=== PATIENT | female | born 1990 | race Caucasian/White ===

== ENCOUNTER 2017-02-19 04:57 | Emergency (ER) | payer OTHER ==
[~2017-02-19] VITALS: Ht 167.6 cm; Wt 86.2 kg
[2017-02-19 05:02] VITALS: BP 143/90
[2017-02-19] MEDS ORDERED: CLIN300C86 PO (05:33)
[2017-02-19] MEDS ORDERED: ACET-704 PO (05:33)
--- NOTE | 2017-02-19 05:33 | PHYS DOC ---
Past Medical History Past Medical History: No Pertinent History Past Surgical History: No Surgical History Alcohol Use: None Drug Use: None Adult General Chief Complaint Chief Complaint: SKIN RASH/ABSCESS HPI HPI Patient is a 26 year old female who presents with redness to left breast. Patient reports she initially had her nipples pierced in May. She had complications with the left nipple piercing. In November she developed a bump and drainage around that nipple, that resolved on its own. Today she started having some redness and heat and area of the left breast. No fever. No other acute complaints. No drainage from nipple or other site of breast. Review of Systems Review of Systems Constitutional: Denies fever or chills Respiratory: Denies cough or shortness of breath Cardiovascular: Denies chest pain Breast: L breast redness and heat GI: Denies abdominal pain, nausea, vomiting, or diarrhea Musculoskeletal: Denies back pain or joint pain Neurologic: Denies headache, focal weakness or sensory changes Current Medications Current Medications Current Medications Medications (Trade) Dose Ordered Sig/Brandan Start Time Stop Time Status Last Admin Dose Admin Clindamycin HCl (Cleocin) 300 mg 1X ONCE 02/19/17 06:00 02/19/17 06:00 DC 02/19/17 05:38 300 MG Naproxen (Naprosyn) 500 mg 1X ONCE 02/19/17 06:00 02/19/17 06:00 DC 02/19/17 05:39 500 MG Allergies Allergies Allergies Coded Allergies Type Severity Reaction Last Updated Verified No Known Drug Allergies 07/18/15 No Physical Exam Physical Exam Constitutional: Well developed, well nourished, no acute distress, non-toxic appearance Cardiovascular: Heart rate normal, regular rhythm, no murmur Lungs & Thorax: Bilateral breath sounds clear to auscultation Breast: L breast with area of redness, induration, warmth to touch at 10 o' clock position with respect to nipple; no fluctuance noted; no drainage noted Abdomen: Bowel sounds normal, soft, non-distended, no TTP Skin: Warm, dry, no erythema, no rash Extremities: No obvious deformity, no edema Neurologic: Alert and oriented X 3, no gross deficits noted Current Patient Data Vital Signs Vital Signs Date Time Temp Pulse Resp B/P Pulse Ox O2 Delivery O2 Flow Rate FiO2 02/19/17 05:02 98.6 98 16 100 Room Air 98.6 EKG EKG [] Radiology/Procedures Radiology/Procedures [] Course & Med Decision Making Course & Med Decision Making Pertinent Labs and Imaging studies reviewed. (See chart for details) Patient is 26-year-old female who presents with cellulitis of left breast. Physical exam does not reveal evidence of abscess. Dose of naproxen and clindamycin ordered. We'll discharge home with short course pain medication, course of clindamycin, instructions for close outpatient follow-up, return precautions. Dragon Disclaimer Dragon Disclaimer This electronic medical record was generated, in whole or in part, using a voice recognition dictation system. Departure Departure Impression: Primary Impression: Cellulitis of left breast Disposition: HOME, SELF-CARE Condition: STABLE Referrals: NO PCP (PCP) Patient Instructions: Cellulitis Additional Instructions: Thank you for allowing us to provide care today in the Emergency Department. Take the provided medication as directed. Use caution when taking the pain medication as it can make you drowsy. Be sure to take the full course of antibiotics. Schedule a follow up appointment with Plastic Surgery at . Call [phone] to schedule an appointment. Return promptly to the Emergency Department if you develop any new or concerning symptoms, such as fever. Scripts Clindamycin Hcl 300 Mg Capsule1 Cap PO TID #21 CAP Prov:LAN BELTRAN MD 02/19/17 Acetaminophen With Codeine (Tylenol With Codeine #3 Tablet)1 Each Tablet1 Tab PO PRN Q4HRS PRN PAIN #20 TAB Prov:LAN BELTRAN MD 02/19/17 LAN BELTRAN MD Feb 19, 2017 05:33
[2017-02-19] MEDS ORDERED: CLINDAMYCIN HCL 150 MG CAPSULE. PO ONE (06:00)
[2017-02-19] MEDS ORDERED: NAPROXEN 500 MG TABLET PO ONE (06:00)
== END 2017-02-19 05:40 | disposition home or self-care (01) ==
LOC: ER 04:57
DX: N61.0 Mastitis without abscess (principal)
CPT/HCPCS: 99283

== ENCOUNTER 2017-03-05 05:25 | Inpatient (IN) | payer SELFPAY ==
[2017-03-05] VITALS (10 sets, daily range): BP systolic 110–135; BP diastolic 64–80
[~2017-03-05] VITALS: Ht 167.6 cm; Wt 86.2 kg
[~2017-03-05 05:25] MED LIST: ACET-704 PO; CLIN300C86 PO
--- NOTE | 2017-03-05 05:45 | PHYS DOC ---
Past Medical History Past Medical History: No Pertinent History Past Surgical History: No Surgical History Alcohol Use: None Drug Use: None Adult General Chief Complaint Chief Complaint: BREAST PROBLEM HPI HPI Patient is a 26 year old female presenting to the emergency department for valuation of left breast pain and swelling. She was seen on February 19 for similar incident home on clindamycin and she said it did not get better until towards the end of the course but never completely resolved. She says over the past several days it has become much more red and hard and painful. No systemic fevers chills nausea vomiting or other systemic symptoms. Review of Systems Review of Systems Constitutional: Denies fever or chills [] Eyes: Denies change in visual acuity, redness, or eye pain [] HENT: Denies nasal congestion or sore throat [] Respiratory: Denies cough or shortness of breath [] Cardiovascular: No additional information not addressed in HPI [] GI: Denies abdominal pain, nausea, vomiting, bloody stools or diarrhea [] : Denies dysuria or hematuria [] Musculoskeletal: Denies back pain or joint pain [] Integument: Left breast cellulitis at 10 o'clock position and spreads towards her sternum. There is fairly impressive induration under the skin. Neurologic: Denies headache, focal weakness or sensory changes [] Current Medications Current Medications Current Medications Medications (Trade) Dose Ordered Sig/Brandan Start Time Stop Time Status Last Admin Dose Admin Ceftriaxone Sodium 1 gm/ Sodium Chloride 50 ml @ 100 mls/hr Q24H 03/06/17 06:00 Ceftriaxone Sodium (Rocephin 1gm Ivpb For Omni) 50 ml @ 100 mls/hr 1X ONCE 03/05/17 06:00 03/05/17 06:29 Morphine Sulfate 5 mg 5 mg 1X ONCE 03/05/17 06:00 03/05/17 06:01 DC Allergies Allergies Allergies Coded Allergies Type Severity Reaction Last Updated Verified No Known Drug Allergies 07/18/15 No Physical Exam Physical Exam Constitutional: Well developed, well nourished, no acute distress, non-toxic appearance. [] HENT: Normocephalic, atraumatic, bilateral external ears normal, oropharynx moist, no oral exudates, nose normal. [] Eyes: PERRLA, EOMI, conjunctiva normal, no discharge. [] Neck: Normal range of motion, no tenderness, supple, no stridor. [] Cardiovascular:Heart rate regular rhythm, no murmur [] Lungs & Thorax: Bilateral breath sounds clear to auscultation [] Abdomen: Bowel sounds normal, soft, no tenderness, no masses, no pulsatile masses. [] Skin: Warm, dry, no erythema, no rash. [] Back: No tenderness, no CVA tenderness. [] Extremities: No tenderness, no cyanosis, no clubbing, ROM intact, no edema. [] Neurologic: Alert and oriented X 3, normal motor function, normal sensory function, no focal deficits noted. [] Psychologic: Affect normal, judgement normal, mood normal. [] Current Patient Data Vital Signs Vital Signs Date Time Temp Pulse Resp B/P Pulse Ox O2 Delivery O2 Flow Rate FiO2 03/05/17 05:40 99.0 95 16 179/81 96 Room Air 99.0 EKG EKG [] Radiology/Procedures Radiology/Procedures [] Course & Med Decision Making Course & Med Decision Making Patient will get labs, breast ultrasound and then be reassessed. Will transfer care to Dr. Dorman while awaiting workup. Dragon Disclaimer Dragon Disclaimer This electronic medical record was generated, in whole or in part, using a voice recognition dictation system. Departure Departure Impression: Primary Impression: Cellulitis of left breast Referrals: NO PCP (PCP) LILLIE CHAVES DO March 05, 2017 05:45
[2017-03-05] MEDS ORDERED: MORPHINE SULFATE 10 MG/ML VIAL. IV ONE (06:00)
[2017-03-05 06:28] LABS: BASO # 0.1 x10^3/uL (0.0-0.2); BASO % 1 % (0-3); EOS % 4 % (0-3); HEMATOCRIT 41.9 % (36.0-47.0); HEMOGLOBIN 14.7 g/dL (12.0-15.5); LYMPH # 2.6 x10^3/uL (1.0-4.8); LYMPH % 25 % (24-48); MEAN CORPUSCULAR HEMOGLOBIN 33 pg (25-35); MEAN CORPUSCULAR HGB CONC 35 g/dL (31-37); MEAN CORPUSCULAR VOLUME 94 fL (79-100); MONO % 9 % (0-9); NEUT % 61 % (31-73); PLATELET COUNT 235 x10^3/uL (140-400); RED BLOOD COUNT 4.46 x10^6/uL (3.50-5.40); RED CELL DISTRIBUTION WIDTH 13.4 % (11.5-14.5); WHITE BLOOD COUNT 10.5 x10^3/uL (4.0-11.0)
[2017-03-05 06:35] LABS: CALCIUM 9.2 mg/dL (8.5-10.1); CREATININE 0.8 mg/dL (0.6-1.0); GFR 88.1; POTASSIUM 3.7 mmol/L (3.5-5.1)
[2017-03-05 06:40] LABS: ALBUMIN 3.9 g/dL (3.4-5.0); TOTAL BILIRUBIN 0.3 mg/dL (0.2-1.0); TOTAL PROTEIN 7.8 g/dL (6.4-8.2)
--- NOTE | 2017-03-05 06:44 | RAD ---
PROCEDURE Left breast diagnostic ultrasound HISTORY Previous lump around nipple that expressed Gallardo. Patient recently given antibiotics for red swollen and hard nipple. Patient returns today for red hard abnormality behind the nipple. TECHNIQUE Sonographic examination of the left breast was performed and multiple static images were obtained FINDINGS There is a complex fluid collection directly behind the nipple areolar complex that measures 3.1 x 3.1 x 3.9 centimeters. IMPRESSION Complex fluid collection directly behind the nipple areolar complex corresponding with the palpable abnormality. This is likely an abscess. This may be amenable to aspiration. ACR BI-RADS 3: Probably benign. Electronically signed by: John Kaye MD (March 05, 2017 06:43:27)
--- NOTE | 2017-03-05 07:47 | ACF ---
Admission Forms Criteria CELLULITIS Clinical Indications for Admission to Inpatient Care (Place 'X' for any and all applicable criteria): Admission is indicated for ANY ONE of the following(1)(2)(3)(4)(5): [ ]I. Limb-threatening infection [ ]II. High-risk comorbid condition as indicated by ANY ONE of the following: [ ]a) Uncontrolled diabetes (eg, HbA1c greater than 10% (0.1)) [ ]b) Cirrhosis [ ]c) Neutropenia [ ]d) Asplenia [ ]e) Immunosuppression [ ]f) Symptomatic heart failure [ ]III. Failure of outpatient therapy as indicated by ALL of the following: [ ]a) Progression or no improvement after adequate trial (minimum of 48 hours, with longer period for stable lower extremity infection) [ ]b) Adequate antibiotic regimen as indicated by use of ANY ONE of the following: [ ]i) First-generation cephalosporin (e.g., cephalexin) [ ]ii) Antistaphylococcal penicillin (e.g., dicloxacillin) [ ]iii) Penicillin-allergic patient regimen (clindamycin, extended-spectrum fluoroquinolone, or doxycycline) [ ]iv) Resistant organism (eg, methicillin-resistant Staphylococcus aureus) regimen (6) [ ]c) Outpatient intravenous therapy regimen is not appropriate due to ANY ONE of the following. (7)(8)(9)(10): [ ]i) It was tried and was not successful (eg, progression of infection). [ ]ii) It is not available or cannot be arranged in a clinically appropriate time frame (e.g., the next day). [ ]iii) Clinical presentation (eg, acuity of infection, rapidity of progression, confirmed or suspected bacteremia) is judged to require ALL of the following: [ ]1) Immediate initiation of intravenous therapy ( eg, cannot wait for next day) [ ]2) Intensity of patient monitoring and observation (eg, vital sign measurement, checks for infection progression) that cannot be provided at other than inpatient level of care [ ]IV. Mental status changes [ ]V. Bacteremia [ ]. Hemodynamic instability [ ]VII. Suspected necrotizing soft tissue infection (e.g., gas in tissue)(11)( 12) [ ]VIII. Orbital infection (13)(14) [ ]IX. Associated surgical procedure (e.g., abscess drainage, debridement) not amenable to outpatient, emergency department, or observation care [ ]X. Cutaneous gangrene [ ]XI. High fever (temperature greater than 39.5 degrees C (103.1 degrees F) (oral)) not responsive to outpatient, emergency department, or observation care therapy [X]XIII. Inpatient admission required rather than observation care (Also use Cellulitis: Observation Care as appropriate) because of ANY ONE of the following : [ ]a) Periorbital or perineal infection that is severe or worsening [ ]b) Severe pain requiring acute inpatient management [ ]c) IV fluid to replace significant ongoing (e.g., for over 24 hours) losses (greater than 3L/m2 per day) [ ]d) Compartment syndrome monitoring (17) [ ]e) Strict or protective (eg, laminar flow) isolation [ ]f) Urgent debridement or skin grafting [ ]g) Bone or joint debridement [ ]h) Immediate inpatient surgery [X]i) Other condition, treatment or monitoring requiring inpatient admission Extended stay beyond goal length of stay may be needed for (1)(18): [ ]a) Necrotizing soft tissue infection or fasciitis [ ]b) Gram-negative infection [ ]c) Methicillin-resistant Staphylococcal aureus (MRSA) infection [ ]d) Peripheral venous insufficiency with cellulitis [ ]e) Extensive edema [ ]f) Sepsis or continued Hemodynamic instability [ ]g) Continued high fever or mental status change [ ]h) Bacteremia [ ]i) Active serious comorbid conditions ( eg, heart failure, renal insufficiency) The original [employer] content created by [employer] has been revised. The portions of the content which have been revised are identified through the use of italic text or in bold, and [facility] has neither reviewed nor approved the modified material. All other unmodified content is copyright [employer] Please see references footnoted in the original [employer] edition 2016 Admission Criteria Met?: Yes ALE JAIN March 05, 2017 07:47
[2017-03-05] MEDS ORDERED: IV NORMAL SALINE 1000ML BAG 1,000 ML IV ONE (08:00)
[2017-03-05] MEDS ORDERED: VANCOMYCIN 2 GM in IV NORMAL SALINE 500ML BAG 500 ML IV ONE (08:00)
[2017-03-05] MEDS: MORPHINE SULFATE 2 MG/ML DISP.SYRIN. IV PRN ×7 (08:46→16:05)
--- NOTE | 2017-03-05 11:43 | PDOC2 ---
CONSULT Date of Consult Date of Consult DATE: 03/05/17 TIME: 11:39 History of Present Illness Reason for Visit: The patient is a 26 year old female who reported to the ER with left breast pain and swelling. She states she has had intermittent problems with this starting back in November. Back then there was some spontaneous drainage with improvement. The problems worsened again in February and she was place on antibiotics 2 weeks ago from the ER with little improvement. She denies fever or chills. Past Medical History Past Medical History denies Past Surgical History Past Surgical History denies Social History 1 pack per day ALCOHOL: rare Lives: Alone Current Problem List Problem List Problems Medical Problems: (1) Cellulitis of left breast Status: Acute Current Medications Current Medications Current Medications Morphine Sulfate 5 mg 5 mg 1X ONCE IV Last administered on 03/05/17 06:21; Start 03/05/17 at 06:00; Stop 03/05/17 at 06:01; Status DC Ceftriaxone Sodium 1 gm/ Sodium Chloride 50 ml @ 100 mls/hr Q24H IV ; Start 03/06/17 at 06:00 Ceftriaxone Sodium 50 ml @ 100 mls/hr 1X ONCE IV Last administered on 06:20; Start 03/05/17 at 06:00; Stop 03/05/17 at 06:29; Status DC Vancomycin HCl/ Sodium Chloride (Iv Sodium Chloride 0.9% 500ml Bag) 500 ml @ 250 mls/hr 1X ONCE IV Last administered on 03/05/17 08:14; Start 03/05/17 at 08 :00; Stop 03/05/17 at 09:59; Status DC Morphine Sulfate 2 mg 2 mg PRN Q2HR PRN IV PAIN Last administered on 03/05/17 10:56; Start 03/05/17 at 08:00; Stop 03/06/17 at 07:59 Sodium Chloride (Iv Sodium Chloride 0.9% 1000ml Bag) 1,000 ml @ 125 mls/hr 1X ONCE IV Last administered on 03/05/17 08:18; Start 03/05/17 at 08:00; Stop at 15:59 Active Scripts Active Clindamycin Hcl 300 Mg Capsule 1 Cap PO TID Tylenol With Codeine #3 Tablet (Acetaminophen/Codeine Phosphate) 1 Each Tablet 1 Tab PO PRN Q4HRS PRN Reported No Known Medications Prior To Admisstion (Info) Each 1 Each Allergies Allergies: Coded Allergies: No Known Drug Allergies (Unverified , 07/18/15) ROS General: No: Appetite, Chills, Fatigue, Malaise, Night Sweats, Other PSYCHOLOGICAL ROS: No: Anxiety, Behavioral Disorder, Concentration difficultie , Decreased libido, Depression, Disorientation, Hallucinations, Hostility, Irritablity, Memory difficulties, Mood Swings, Obsessive thoughts, Other, Physical abuse, Sexual abuse, Sleep disturbances, Suicidal ideation Eyes: No Blurry vision, No Decreased vision, No Double vision, No Dry eyes, No Excessive tearing, No Eye Pain, No Itchy Eyes, No Loss of vision, No Other, No Photophobia, No Scotomata, No Uses contacts, No Uses glasses HEENT: No: Epistaxis, Heacaches, Hearing change, Nasal congestion, Nasal discharge, Oral lesions, Other, Sinus pain, Sneezing, Snoring, Sore Throat, Tinnitus, Vertigo, Visual Changes, Vocal changes Breast: Other (left breast pain, swelling) Respiratory: No: Cough, Hemoptysis, Orthopnea, Other, Pleuritic Pain, SOB with excertion, Shortness of breath, Sputum Changes, Stridor, Tachypnea, Wheezing Cardiovascular: No Chest Pain, No Edema, No Lt Headedness, No Orthopnea, No Other, No Palpitations, No Paroxysmal Noc. Dyspnea Gastrointestinal: No Abdominal Pain, No Constipation, No Diarrhea, No Hematochezia, No Melena, No Nausea, No Other, No Vomiting Genitourinary: No , No , No , No , No , No , No , No Discharge, No Dysuria, No Flank Pain, No Frequency, No Hematuria, No Incontinence, No Other, No Pain, No Retention, No Urgency Musculoskeletal: No Gait Disturbance, No Joint Pain, No Joint Stiffness, No Joint Swelling, No Muscle Pain, No Muscular Weakness, No Other, No Pain In:, No Swelling In: Neurological: No Behavorial Changes, No Bowel/Bladder ControlChng, No Confusion , No Dizziness, No Gait Disturbance, No Headaches, No Impaired Coord/balance, No Memory Loss, No Numbness/Tingling, No Other, No Seizures, No Speech Problems , No Tremors, No Visual Changes, No Weakness Skin: No Acne, No Dry Skin, No Eczema, No Hair Changes, No Lumps, No Mole Changes, No Mottling, No Nail Changes, No Other, No Pruritus, No Rash, No Skin Lesion Changes Physical Exam Physical Exam left breast with large central areal of pain, induration, erythema General: Alert, Oriented X3, Cooperative, No acute distress HEENT: Atraumatic Lungs: Clear to auscultation Heart: Regular rate, No murmurs Abdomen: Soft, No tenderness Extremities: No clubbing, No cyanosis, No edema Skin: No rashes, No breakdown Neuro: Normal speech Psych/Mental Status: Mental status NL MUSCULOSKELETAL: No joint tenderness Vitals VITALS Vital Signs Date Time Temp Pulse Resp B/P Pulse Ox O2 Delivery O2 Flow Rate FiO2 03/05/17 11:28 Room Air 03/05/17 10:15 98.2 74 16 135/80 97 98.2 Labs Labs Laboratory Tests Test 03/05/17 06:15 White Blood Count 10.5x10^3/uL (4.0-11.0) Red Blood Count 4.46x10^6/uL (3.50-5.40) Hemoglobin 14.7g/dL (12.0-15.5) Hematocrit 41.9% (36.0-47.0) Mean Corpuscular Volume 94fL (79-100) Mean Corpuscular Hemoglobin 33pg (25-35) Mean Corpuscular Hemoglobin Concent 35g/dL (31-37) Red Cell Distribution Width 13.4% (11.5-14.5) Platelet Count 235x10^3/uL (140-400) Neutrophils (%) (Auto) 61% (31-73) Lymphocytes (%) (Auto) 25% (24-48) Monocytes (%) (Auto) 9% (0-9) Eosinophils (%) (Auto) 4% (0-3) Basophils (%) (Auto) 1% (0-3) Neutrophils # (Auto) 6.4x10^3uL (1.8-7.7) Lymphocytes # (Auto) 2.6x10^3/uL (1.0-4.8) Monocytes # (Auto) 1.0x10^3/uL (0.0-1.1) Eosinophils # (Auto) 0.5x10^3/uL (0.0-0.7) Basophils # (Auto) 0.1x10^3/uL (0.0-0.2) Sodium Level 139mmol/L (136-145) Potassium Level 3.7mmol/L (3.5-5.1) Chloride Level 104mmol/L (98-107) Carbon Dioxide Level 29mmol/L (21-32) Anion Gap 6 (6-14) Blood Urea Nitrogen 16mg/dL (7-20) Creatinine 0.8mg/dL (0.6-1.0) Estimated GFR (Cockcroft-Gault) 88.1 BUN/Creatinine Ratio 20 (6-20) Glucose Level 85mg/dL (70-99) Calcium Level 9.2mg/dL (8.5-10.1) Total Bilirubin 0.3mg/dL (0.2-1.0) Aspartate Amino Transf (AST/SGOT) 18U/L (15-37) Alanine Aminotransferase (ALT/SGPT) 29U/L (14-59) Alkaline Phosphatase 112U/L (46-116) Total Protein 7.8g/dL (6.4-8.2) Albumin 3.9g/dL (3.4-5.0) Albumin/Globulin Ratio 1.0 (1.0-1.7) Laboratory Tests Test 03/05/17 06:15 White Blood Count 10.5x10^3/uL (4.0-11.0) Red Blood Count 4.46x10^6/uL (3.50-5.40) Hemoglobin 14.7g/dL (12.0-15.5) Hematocrit 41.9% (36.0-47.0) Mean Corpuscular Volume 94fL (79-100) Mean Corpuscular Hemoglobin 33pg (25-35) Mean Corpuscular Hemoglobin Concent 35g/dL (31-37) Red Cell Distribution Width 13.4% (11.5-14.5) Platelet Count 235x10^3/uL (140-400) Neutrophils (%) (Auto) 61% (31-73) Lymphocytes (%) (Auto) 25% (24-48) Monocytes (%) (Auto) 9% (0-9) Eosinophils (%) (Auto) 4% (0-3) Basophils (%) (Auto) 1% (0-3) Neutrophils # (Auto) 6.4x10^3uL (1.8-7.7) Lymphocytes # (Auto) 2.6x10^3/uL (1.0-4.8) Monocytes # (Auto) 1.0x10^3/uL (0.0-1.1) Eosinophils # (Auto) 0.5x10^3/uL (0.0-0.7) Basophils # (Auto) 0.1x10^3/uL (0.0-0.2) Sodium Level 139mmol/L (136-145) Potassium Level 3.7mmol/L (3.5-5.1) Chloride Level 104mmol/L (98-107) Carbon Dioxide Level 29mmol/L (21-32) Anion Gap 6 (6-14) Blood Urea Nitrogen 16mg/dL (7-20) Creatinine 0.8mg/dL (0.6-1.0) Estimated GFR (Cockcroft-Gault) 88.1 BUN/Creatinine Ratio 20 (6-20) Glucose Level 85mg/dL (70-99) Calcium Level 9.2mg/dL (8.5-10.1) Total Bilirubin 0.3mg/dL (0.2-1.0) Aspartate Amino Transf (AST/SGOT) 18U/L (15-37) Alanine Aminotransferase (ALT/SGPT) 29U/L (14-59) Alkaline Phosphatase 112U/L (46-116) Total Protein 7.8g/dL (6.4-8.2) Albumin 3.9g/dL (3.4-5.0) Albumin/Globulin Ratio 1.0 (1.0-1.7) Assessment/Plan Assessment/Plan L breast abscess, large. Will need I and D in the OR. I explained the procedure to the patient and the risks. She understands and would like to proceed. REUBEN MORRISON MD March 05, 2017 11:43
[2017-03-05] MEDS ORDERED: IV RINGERS,LACTATED 1000ML 1,000 ML IV SCH (12:22)
[2017-03-05] MEDS ORDERED: fentaNYL PF VIAL 100 MCG/2 ML VIAL IV PRN (12:30)
[2017-03-05] MEDS ORDERED: LIDOCAINE 1% 1 ML SYRINGE. ID PRN (12:30)
[2017-03-05] MEDS ORDERED: HYDROmorphone 2 MG/ML VIAL IV PRN (12:30)
[2017-03-05] MEDS ORDERED: PROCHLORPERAZINE 10 MG/2 ML VIAL. IV PRN (12:30)
[2017-03-05] MEDS ORDERED: ONDANSETRON PF 4 MG/2 ML VIAL. IV PRN ×2 (12:30→15:15)
[2017-03-05] MEDS ORDERED: fentaNYL PF VIAL 100 MCG/2 ML VIAL ONE (13:55)
[2017-03-05] MEDS ORDERED: MIDAZOLAM HCL/PF 2 MG/2 ML VIAL. ONE (13:55)
--- NOTE | 2017-03-05 14:22 | PDOC4 ---
Operative Note Operative Note Operative Note: Preoperative Diagnosis: Left breast abscess Postoperative Diagnosis: Same Procedure: Incision and drainage of left breast abscess Surgeon: Jose Anesthesia: Gen. Specimen: Cultures to microbiology Drains: None Complications: None Indication: The patient is a 26-year-old female who reported to the emergency department with a sizable left breast abscess. She will require operative incision and drainage. The details and risks of surgery were discussed with the patient. The risks include bleeding, infection, recurrence, pain, scar tissue, potential need for additional surgery or procedure. She understands and would like to proceed. Description: The patient was taken to the operating room and placed supine on the operating table. Gen. anesthesia was performed. The left breast was prepped with ChloraPrep and draped in a standard surgical manner. An incision was made in a fluctuant area near the border of the areola extending from the 10 to 12 o 'clock position. The abscess cavity was entered with immediate return of a large amount of rankin foul-smelling purulent fluid. Cultures of the fluid retained and sent to microbiology. The entire abscess cavity was fully drained and suctioned. Digital dissection was then performed freeing up any inflammatory loculations or adhesions. The base of the abscess cavity was fairly clean with some inflamed granulation tissue. The entire cavity was irrigated with sterile saline which was suctioned. A small amount of electrocautery was used to assist with hemostasis. The abscess cavity was then packed with sterile gauze and a dressing was then applied. The patient tolerated the procedure well and was sent to the recovery room in stable condition. At the end of the case all counts were correct. REUBEN MORRISON MD March 05, 2017 14:22
[2017-03-05] MEDS ORDERED: SEVOFLURANE 31 TO 60 MINUTES. IH ONE (14:25)
[2017-03-05] MEDS ORDERED: ONDANSETRON PF 4 MG/2 ML VIAL. ONE (14:25)
[2017-03-05] MEDS ORDERED: LIDOCAINE 2% 100 MG/5 ML SYRINGE. ONE (14:25)
[2017-03-05] MEDS ORDERED: DEXAMETHASONE SOD PHOS 20 MG/5 ML VIAL. ONE (14:25)
[2017-03-05] MEDS ORDERED: PROPOFOL 20 ML IV ONE (14:25)
[2017-03-05] MEDS: fentaNYL PF VIAL 100 MCG/2 ML VIAL IV PRN ×2 (14:35→15:03)
[2017-03-05] MEDS ORDERED: ACETAMINOPHEN 325 MG TABLET. PO PRN (15:15)
[2017-03-05] MEDS ORDERED: VANCOMYCIN 2 GM in IV NORMAL SALINE 500ML BAG 500 ML IV SCH (15:15)
[2017-03-05] MEDS ORDERED: MORPHINE SULFATE 2 MG/ML DISP.SYRIN. IV PRN (15:15)
--- NOTE | 2017-03-05 15:18 | PDOC1 ---
History and Physical Date of Admission Date of Admission 03/05/17 Identification/Chief Complaint Chief Complaint left breast pain Problems: Source Source: Chart review, Patient History of Present Illness History of Present Illness 26yo F, comes for left breast pain. Pt started to feel some left breast pain since 11/2016, worse recently and got clinda from ER but not improve. pt is getting I and D in OR now. Past Medical History Past Medical History none Past Surgical History Past Surgical History: No pertinent history Family History Family History: No Significant Social History Smoke: <1 pack per day ALCOHOL: rare Current Problem List Problem List Problems Medical Problems: (1) Cellulitis of left breast Status: Acute Current Medications Current Medications Current Medications Medications (Trade) Dose Ordered Sig/Brandan Start Time Stop Time Status Last Admin Dose Admin Ceftriaxone Sodium 1 gm/ Sodium Chloride 50 ml @ 100 mls/hr Q24H 03/06/17 06:00 Ceftriaxone Sodium 50 ml @ 100 mls/hr 1X ONCE 03/05/17 06:00 03/05/17 06:29 DC 03/05/17 06:20 100 MLS/HR Dexamethasone Sodium Phosphate 20 mg 20 mg STK-MED ONCE 03/05/17 14:25 03/05/17 14:26 DC Fentanyl Citrate (Fentanyl 2ml Vial) 100 mcg STK-MED ONCE 03/05/17 13:55 03/05/17 13:56 DC Hydromorphone HCl (Dilaudid) 0.5 mg PRN Q10MIN PRN 03/05/17 12:30 03/06/17 12:29 Lactated Ringer's (Iv Lactated Ringers) 1,000 ml @ 30 mls/hr Q24H 03/05/17 12:22 03/06/17 00:21 03/05/17 12:22 30 MLS/HR Lidocaine HCl (Lidocaine HCl 2% Abboject) 100 mg STK-MED ONCE 03/05/17 14:25 03/05/17 14:26 DC Midazolam HCl (Versed) 2 mg STK-MED ONCE 03/05/17 13:55 03/05/17 13:56 DC Morphine Sulfate 1 mg 1 mg PRN Q10MIN PRN 03/05/17 12:30 03/06/17 12:29 03/05/17 15:11 1 MG Morphine Sulfate 2 mg 2 mg PRN Q2HR PRN 03/05/17 08:00 03/06/17 07:59 03/05/17 10:56 2 MG Morphine Sulfate 5 mg 5 mg 1X ONCE 03/05/17 06:00 03/05/17 06:01 DC 03/05/17 06:21 5 MG Ondansetron HCl (Zofran) 4 mg STK-MED ONCE 03/05/17 14:25 03/05/17 14:26 DC Prochlorperazine Edisylate (Compazine) 5 mg PACU PRN PRN 03/05/17 12:30 03/06/17 12:29 Propofol (Diprivan) 20 ml @ As Directed STK-MED ONCE 03/05/17 14:25 03/05/17 14:26 DC Sevoflurane (Ultane) 30 ml STK-MED ONCE 03/05/17 14:25 03/05/17 14:26 DC Sodium Chloride (Iv Sodium Chloride 0.9% 1000ml Bag) 1,000 ml @ 125 mls/hr 1X ONCE 03/05/17 08:00 03/05/17 15:59 03/05/17 08:18 125 MLS/HR Vancomycin HCl/ Sodium Chloride (Iv Sodium Chloride 0.9% 500ml Bag) 500 ml @ 250 mls/hr 1X ONCE 03/05/17 08:00 03/05/17 09:59 DC 03/05/17 08:14 250 MLS/HR Allergies Allergies Allergies Coded Allergies Type Severity Reaction Last Updated Verified No Known Drug Allergies 07/18/15 No ROS Review of System CONSTITUTIONAL: No fever or chills EYES: No recent changes SKIN: No rash or itching CARDIOVASCULAR: No chest pain, syncope, palpitations, or edema RESPIRATORY: No SOB or cough GASTROINTESTINAL: No nausea, vomiting or abdominal pain NEUROLOGICAL: No headaches or weakness ENDOCRINE: No cold or heat intolerance GENITOURINARY: No urgency or frequency of urination MUSCULOSKELETAL: No back pain or joint pain LYMPHATICS: No enlarged lymph nodes PSYCHIATRIC: No anxiety or depression Physical Exam Physical Exam GEN.: No apparent distress. Alert and oriented. HEENT: Head is normocephalic, atraumatic NECK: Supple. LUNGS: Clear to auscultation. HEART: RRR, S1, S2 present. Peripheral pulses intact ABDOMEN: Soft, nontender. Positive bowel sounds. EXTREMITIES: Without any cyanosis. NEUROLOGIC: Normal speech, normal tone PSYCHIATRIC: Normal affect, normal mood. SKIN: No ulcerations,. left breast has a nodule erythematous , tenderness Vitals Vitals Vital Signs Date Time Temp Pulse Resp B/P Pulse Ox O2 Delivery O2 Flow Rate FiO2 03/05/17 15:11 16 97 Room Air 03/05/17 14:56 68 141/75 03/05/17 14:35 10.0 03/05/17 14:26 97.5 97.5 Labs Labs Laboratory Tests Test 03/05/17 06:15 White Blood Count 10.5x10^3/uL (4.0-11.0) Red Blood Count 4.46x10^6/uL (3.50-5.40) Hemoglobin 14.7g/dL (12.0-15.5) Hematocrit 41.9% (36.0-47.0) Mean Corpuscular Volume 94fL (79-100) Mean Corpuscular Hemoglobin 33pg (25-35) Mean Corpuscular Hemoglobin Concent 35g/dL (31-37) Red Cell Distribution Width 13.4% (11.5-14.5) Platelet Count 235x10^3/uL (140-400) Neutrophils (%) (Auto) 61% (31-73) Lymphocytes (%) (Auto) 25% (24-48) Monocytes (%) (Auto) 9% (0-9) Eosinophils (%) (Auto) 4% (0-3) Basophils (%) (Auto) 1% (0-3) Neutrophils # (Auto) 6.4x10^3uL (1.8-7.7) Lymphocytes # (Auto) 2.6x10^3/uL (1.0-4.8) Monocytes # (Auto) 1.0x10^3/uL (0.0-1.1) Eosinophils # (Auto) 0.5x10^3/uL (0.0-0.7) Basophils # (Auto) 0.1x10^3/uL (0.0-0.2) Sodium Level 139mmol/L (136-145) Potassium Level 3.7mmol/L (3.5-5.1) Chloride Level 104mmol/L (98-107) Carbon Dioxide Level 29mmol/L (21-32) Anion Gap 6 (6-14) Blood Urea Nitrogen 16mg/dL (7-20) Creatinine 0.8mg/dL (0.6-1.0) Estimated GFR (Cockcroft-Gault) 88.1 BUN/Creatinine Ratio 20 (6-20) Glucose Level 85mg/dL (70-99) Calcium Level 9.2mg/dL (8.5-10.1) Total Bilirubin 0.3mg/dL (0.2-1.0) Aspartate Amino Transf (AST/SGOT) 18U/L (15-37) Alanine Aminotransferase (ALT/SGPT) 29U/L (14-59) Alkaline Phosphatase 112U/L (46-116) Total Protein 7.8g/dL (6.4-8.2) Albumin 3.9g/dL (3.4-5.0) Albumin/Globulin Ratio 1.0 (1.0-1.7) Laboratory Tests Test 03/05/17 06:15 White Blood Count 10.5x10^3/uL (4.0-11.0) Red Blood Count 4.46x10^6/uL (3.50-5.40) Hemoglobin 14.7g/dL (12.0-15.5) Hematocrit 41.9% (36.0-47.0) Mean Corpuscular Volume 94fL (79-100) Mean Corpuscular Hemoglobin 33pg (25-35) Mean Corpuscular Hemoglobin Concent 35g/dL (31-37) Red Cell Distribution Width 13.4% (11.5-14.5) Platelet Count 235x10^3/uL (140-400) Neutrophils (%) (Auto) 61% (31-73) Lymphocytes (%) (Auto) 25% (24-48) Monocytes (%) (Auto) 9% (0-9) Eosinophils (%) (Auto) 4% (0-3) Basophils (%) (Auto) 1% (0-3) Neutrophils # (Auto) 6.4x10^3uL (1.8-7.7) Lymphocytes # (Auto) 2.6x10^3/uL (1.0-4.8) Monocytes # (Auto) 1.0x10^3/uL (0.0-1.1) Eosinophils # (Auto) 0.5x10^3/uL (0.0-0.7) Basophils # (Auto) 0.1x10^3/uL (0.0-0.2) Sodium Level 139mmol/L (136-145) Potassium Level 3.7mmol/L (3.5-5.1) Chloride Level 104mmol/L (98-107) Carbon Dioxide Level 29mmol/L (21-32) Anion Gap 6 (6-14) Blood Urea Nitrogen 16mg/dL (7-20) Creatinine 0.8mg/dL (0.6-1.0) Estimated GFR (Cockcroft-Gault) 88.1 BUN/Creatinine Ratio 20 (6-20) Glucose Level 85mg/dL (70-99) Calcium Level 9.2mg/dL (8.5-10.1) Total Bilirubin 0.3mg/dL (0.2-1.0) Aspartate Amino Transf (AST/SGOT) 18U/L (15-37) Alanine Aminotransferase (ALT/SGPT) 29U/L (14-59) Alkaline Phosphatase 112U/L (46-116) Total Protein 7.8g/dL (6.4-8.2) Albumin 3.9g/dL (3.4-5.0) Albumin/Globulin Ratio 1.0 (1.0-1.7) VTE Prophylaxis Ordered VTE Prophylaxis Devices: Yes VTE Pharmacological Prophylaxi: No Assessment/Plan Assessment/Plan 1. left breast cellulitis/abcess 2. obesity 3. tobaccoism plan: fu with sx, i and d today on ceftriaxone and add vanco pain control need fu with cx ZOEY MADRID MD March 05, 2017 15:17
[2017-03-05] MEDS: VANCOMYCIN PER PHARMACY MC PRN ×2 (15:31→15:41)
[2017-03-05] MEDS: VANCOMYCIN 1.25 GM in IV NORMAL SALINE 250ML 250 ML IV SCH (16:30)
[2017-03-05] MEDS: MORPHINE SULFATE 4 MG/ML DISP.SYRIN. IV PRN ×2 (18:23→22:33)
[2017-03-06] MEDS: VANCOMYCIN 1.25 GM in IV NORMAL SALINE 250ML 250 ML IV SCH ×3 (00:06→16:37)
[2017-03-06] MEDS: MORPHINE SULFATE 4 MG/ML DISP.SYRIN. IV PRN ×4 (03:07→16:38)
[2017-03-06 03:23] VITALS: BP 124/73
[2017-03-06 04:41] LABS: BASO % 0 % (0-3); EOS % 0 % (0-3); HEMATOCRIT 42.2 % (36.0-47.0); HEMOGLOBIN 14.2 g/dL (12.0-15.5); LYMPH # 0.8 x10^3/uL (1.0-4.8); LYMPH % 7 % (24-48); MEAN CORPUSCULAR HEMOGLOBIN 32 pg (25-35); MEAN CORPUSCULAR HGB CONC 34 g/dL (31-37); MEAN CORPUSCULAR VOLUME 96 fL (79-100); MONO % 4 % (0-9); NEUT % 89 % (31-73); PLATELET COUNT 226 x10^3/uL (140-400); RED BLOOD COUNT 4.42 x10^6/uL (3.50-5.40); RED CELL DISTRIBUTION WIDTH 13.2 % (11.5-14.5); WHITE BLOOD COUNT 11.8 x10^3/uL (4.0-11.0)
[2017-03-06 05:03] LABS: CREATININE 0.7 mg/dL (0.6-1.0); GFR 102.8; POTASSIUM 4.2 mmol/L (3.5-5.1)
[2017-03-06 06:29] LABS: PLT ESTIMATE ADEQUATE (ADEQUATE)
[2017-03-06 07:00] VITALS: BP 122/65
[2017-03-06] MEDS: VANCOMYCIN PER PHARMACY MC PRN (08:23)
--- NOTE | 2017-03-06 10:01 | PDOC ---
Infectious Disease Note Vital Sign Vital Signs Vital Signs Date Time Temp Pulse Resp B/P Pulse Ox O2 Delivery O2 Flow Rate FiO2 03/06/17 08:39 95 Room Air 03/06/17 07:00 97.5 73 20 122/65 97.5 03/05/17 14:35 10.0 Labs Lab Laboratory Tests Test 03/06/17 04:20 03/06/17 07:40 White Blood Count 11.8x10^3/uL (4.0-11.0) Red Blood Count 4.42x10^6/uL (3.50-5.40) Hemoglobin 14.2g/dL (12.0-15.5) Hematocrit 42.2% (36.0-47.0) Mean Corpuscular Volume 96fL (79-100) Mean Corpuscular Hemoglobin 32pg (25-35) Mean Corpuscular Hemoglobin Concent 34g/dL (31-37) Red Cell Distribution Width 13.2% (11.5-14.5) Platelet Count 226x10^3/uL (140-400) Neutrophils (%) (Auto) 89% (31-73) Lymphocytes (%) (Auto) 7% (24-48) Monocytes (%) (Auto) 4% (0-9) Eosinophils (%) (Auto) 0% (0-3) Basophils (%) (Auto) 0% (0-3) Neutrophils # (Auto) 10.5x10^3uL (1.8-7.7) Lymphocytes # (Auto) 0.8x10^3/uL (1.0-4.8) Monocytes # (Auto) 0.5x10^3/uL (0.0-1.1) Eosinophils # (Auto) 0.0x10^3/uL (0.0-0.7) Basophils # (Auto) 0.0x10^3/uL (0.0-0.2) Segmented Neutrophils % 85% (35-66) Band Neutrophils % 1% (0-9) Lymphocytes % 13% (24-48) Monocytes % 1% (0-10) Platelet Estimate Adequate (ADEQUATE) Sodium Level 139mmol/L (136-145) Potassium Level 4.2mmol/L (3.5-5.1) Chloride Level 104mmol/L (98-107) Carbon Dioxide Level 27mmol/L (21-32) Anion Gap 8 (6-14) Blood Urea Nitrogen 8mg/dL (7-20) Creatinine 0.7mg/dL (0.6-1.0) Estimated GFR (Cockcroft-Gault) 102.8 Glucose Level 121mg/dL (70-99) Calcium Level 9.0mg/dL (8.5-10.1) Vancomycin Level Trough 16.2mcg/mL (10.0-20.0) Vancomycin Last Dose Date 03/06/17 Vancomycin Last Dose Time 0000 Objective Assessment Left breast abscess s/p I and D , staph species Leukocytosis Plan Plan of Care cont vanc check cultures and then adjust supportive care KWASI YEN MD March 06, 2017 10:01
[2017-03-06 11:05] VITALS: BP 123/52
--- NOTE | 2017-03-06 12:19 | PDOC ---
PROGRESS NOTES Chief Complaint Chief Complaint 1. left breast cellulitis/abccess s/p i and d on 03/05 2. obesity 3. tobaccoism plan: fu with sx, i and d 03/05 dc ceftriaxone, cont vanco pain control need fu with cx ID consulted History of Present Illness History of Present Illness slightly higher WBC pain better Vitals Vitals Vital Signs Date Time Temp Pulse Resp B/P Pulse Ox O2 Delivery O2 Flow Rate FiO2 03/06/17 11:05 97.9 100 20 123/52 96 Room Air 97.9 03/05/17 14:35 10.0 Physical Exam General: Alert, Oriented X3, Cooperative, No acute distress Heart: Regular rate, No murmurs Abdomen: Soft, No tenderness Extremities: No clubbing, No cyanosis, No edema Skin: No rashes, No breakdown Labs LABS Laboratory Tests Test 03/06/17 04:20 03/06/17 07:40 White Blood Count 11.8x10^3/uL (4.0-11.0) Red Blood Count 4.42x10^6/uL (3.50-5.40) Hemoglobin 14.2g/dL (12.0-15.5) Hematocrit 42.2% (36.0-47.0) Mean Corpuscular Volume 96fL (79-100) Mean Corpuscular Hemoglobin 32pg (25-35) Mean Corpuscular Hemoglobin Concent 34g/dL (31-37) Red Cell Distribution Width 13.2% (11.5-14.5) Platelet Count 226x10^3/uL (140-400) Neutrophils (%) (Auto) 89% (31-73) Lymphocytes (%) (Auto) 7% (24-48) Monocytes (%) (Auto) 4% (0-9) Eosinophils (%) (Auto) 0% (0-3) Basophils (%) (Auto) 0% (0-3) Neutrophils # (Auto) 10.5x10^3uL (1.8-7.7) Lymphocytes # (Auto) 0.8x10^3/uL (1.0-4.8) Monocytes # (Auto) 0.5x10^3/uL (0.0-1.1) Eosinophils # (Auto) 0.0x10^3/uL (0.0-0.7) Basophils # (Auto) 0.0x10^3/uL (0.0-0.2) Segmented Neutrophils % 85% (35-66) Band Neutrophils % 1% (0-9) Lymphocytes % 13% (24-48) Monocytes % 1% (0-10) Platelet Estimate Adequate (ADEQUATE) Sodium Level 139mmol/L (136-145) Potassium Level 4.2mmol/L (3.5-5.1) Chloride Level 104mmol/L (98-107) Carbon Dioxide Level 27mmol/L (21-32) Anion Gap 8 (6-14) Blood Urea Nitrogen 8mg/dL (7-20) Creatinine 0.7mg/dL (0.6-1.0) Estimated GFR (Cockcroft-Gault) 102.8 Glucose Level 121mg/dL (70-99) Calcium Level 9.0mg/dL (8.5-10.1) Vancomycin Level Trough 16.2mcg/mL (10.0-20.0) Vancomycin Last Dose Date 03/06/17 Vancomycin Last Dose Time 0000 Review of Systems Review of Systems no fever, chills, sob or chest pain Assessment and Plan Assessmemt and Plan Problems Medical Problems: (1) Cellulitis of left breast Status: Acute Problems: Comment Review of Relevant I have reviewed the following items nabor (where applicable) has been applied. Labs Laboratory Tests Test 03/05/17 06:15 03/06/17 04:20 03/06/17 07:40 White Blood Count 10.5x10^3/uL (4.0-11.0) 11.8x10^3/uL (4.0-11.0) Red Blood Count 4.46x10^6/uL (3.50-5.40) 4.42x10^6/uL (3.50-5.40) Hemoglobin 14.7g/dL (12.0-15.5) 14.2g/dL (12.0-15.5) Hematocrit 41.9% (36.0-47.0) 42.2% (36.0-47.0) Mean Corpuscular Volume 94fL (79-100) 96fL (79-100) Mean Corpuscular Hemoglobin 33pg (25-35) 32pg (25-35) Mean Corpuscular Hemoglobin Concent 35g/dL (31-37) 34g/dL (31-37) Red Cell Distribution Width 13.4% (11.5-14.5) 13.2% (11.5-14.5) Platelet Count 235x10^3/uL (140-400) 226x10^3/uL (140-400) Neutrophils (%) (Auto) 61% (31-73) 89% (31-73) Lymphocytes (%) (Auto) 25% (24-48) 7% (24-48) Monocytes (%) (Auto) 9% (0-9) 4% (0-9) Eosinophils (%) (Auto) 4% (0-3) 0% (0-3) Basophils (%) (Auto) 1% (0-3) 0% (0-3) Neutrophils # (Auto) 6.4x10^3uL (1.8-7.7) 10.5x10^3uL (1.8-7.7) Lymphocytes # (Auto) 2.6x10^3/uL (1.0-4.8) 0.8x10^3/uL (1.0-4.8) Monocytes # (Auto) 1.0x10^3/uL (0.0-1.1) 0.5x10^3/uL (0.0-1.1) Eosinophils # (Auto) 0.5x10^3/uL (0.0-0.7) 0.0x10^3/uL (0.0-0.7) Basophils # (Auto) 0.1x10^3/uL (0.0-0.2) 0.0x10^3/uL (0.0-0.2) Sodium Level 139mmol/L (136-145) 139mmol/L (136-145) Potassium Level 3.7mmol/L (3.5-5.1) 4.2mmol/L (3.5-5.1) Chloride Level 104mmol/L (98-107) 104mmol/L (98-107) Carbon Dioxide Level 29mmol/L (21-32) 27mmol/L (21-32) Anion Gap 6 (6-14) 8 (6-14) Blood Urea Nitrogen 16mg/dL (7-20) 8mg/dL (7-20) Creatinine 0.8mg/dL (0.6-1.0) 0.7mg/dL (0.6-1.0) Estimated GFR (Cockcroft-Gault) 88.1 102.8 BUN/Creatinine Ratio 20 (6-20) Glucose Level 85mg/dL (70-99) 121mg/dL (70-99) Calcium Level 9.2mg/dL (8.5-10.1) 9.0mg/dL (8.5-10.1) Total Bilirubin 0.3mg/dL (0.2-1.0) Aspartate Amino Transf (AST/SGOT) 18U/L (15-37) Alanine Aminotransferase (ALT/SGPT) 29U/L (14-59) Alkaline Phosphatase 112U/L (46-116) Total Protein 7.8g/dL (6.4-8.2) Albumin 3.9g/dL (3.4-5.0) Albumin/Globulin Ratio 1.0 (1.0-1.7) Segmented Neutrophils % 85% (35-66) Band Neutrophils % 1% (0-9) Lymphocytes % 13% (24-48) Monocytes % 1% (0-10) Platelet Estimate Adequate (ADEQUATE) Vancomycin Level Trough 16.2mcg/mL (10.0-20.0) Vancomycin Last Dose Date 03/06/17 Vancomycin Last Dose Time 0000 Laboratory Tests Test 03/06/17 04:20 03/06/17 07:40 White Blood Count 11.8x10^3/uL (4.0-11.0) Red Blood Count 4.42x10^6/uL (3.50-5.40) Hemoglobin 14.2g/dL (12.0-15.5) Hematocrit 42.2% (36.0-47.0) Mean Corpuscular Volume 96fL (79-100) Mean Corpuscular Hemoglobin 32pg (25-35) Mean Corpuscular Hemoglobin Concent 34g/dL (31-37) Red Cell Distribution Width 13.2% (11.5-14.5) Platelet Count 226x10^3/uL (140-400) Neutrophils (%) (Auto) 89% (31-73) Lymphocytes (%) (Auto) 7% (24-48) Monocytes (%) (Auto) 4% (0-9) Eosinophils (%) (Auto) 0% (0-3) Basophils (%) (Auto) 0% (0-3) Neutrophils # (Auto) 10.5x10^3uL (1.8-7.7) Lymphocytes # (Auto) 0.8x10^3/uL (1.0-4.8) Monocytes # (Auto) 0.5x10^3/uL (0.0-1.1) Eosinophils # (Auto) 0.0x10^3/uL (0.0-0.7) Basophils # (Auto) 0.0x10^3/uL (0.0-0.2) Segmented Neutrophils % 85% (35-66) Band Neutrophils % 1% (0-9) Lymphocytes % 13% (24-48) Monocytes % 1% (0-10) Platelet Estimate Adequate (ADEQUATE) Sodium Level 139mmol/L (136-145) Potassium Level 4.2mmol/L (3.5-5.1) Chloride Level 104mmol/L (98-107) Carbon Dioxide Level 27mmol/L (21-32) Anion Gap 8 (6-14) Blood Urea Nitrogen 8mg/dL (7-20) Creatinine 0.7mg/dL (0.6-1.0) Estimated GFR (Cockcroft-Gault) 102.8 Glucose Level 121mg/dL (70-99) Calcium Level 9.0mg/dL (8.5-10.1) Vancomycin Level Trough 16.2mcg/mL (10.0-20.0) Vancomycin Last Dose Date 03/06/17 Vancomycin Last Dose Time 0000 Microbiology 03/05/17 Gram Stain - Final, Complete Medications Current Medications Morphine Sulfate 5 mg 5 mg 1X ONCE IV Last administered on 03/05/17 06:21; Start 03/05/17 at 06:00; Stop 03/05/17 at 06:01; Status DC Ceftriaxone Sodium 1 gm/ Sodium Chloride 50 ml @ 100 mls/hr Q24H IV Last administered on 03/06/17 05:47; Start 03/06/17 at 06:00; Stop 03/06/17 at 10:02; Status DC Ceftriaxone Sodium 50 ml @ 100 mls/hr 1X ONCE IV Last administered on 06:20; Start 03/05/17 at 06:00; Stop 03/05/17 at 06:29; Status DC Vancomycin HCl/ Sodium Chloride (Iv Sodium Chloride 0.9% 500ml Bag) 500 ml @ 250 mls/hr 1X ONCE IV Last administered on 03/05/17 08:14; Start 03/05/17 at 08 :00; Stop 03/05/17 at 09:59; Status DC Morphine Sulfate 2 mg 2 mg PRN Q2HR PRN IV PAIN Last administered on 03/05/17 16:05; Start 03/05/17 at 08:00; Stop 03/06/17 at 08:05; Status DC Sodium Chloride (Iv Sodium Chloride 0.9% 1000ml Bag) 1,000 ml @ 125 mls/hr 1X ONCE IV Last administered on 03/05/17 08:18; Start 03/05/17 at 08:00; Stop at 15:59; Status DC Ondansetron HCl (Zofran) 4 mg PRN Q6HRS PRN IV NAUSEA/VOMITING; Start 03/05/17 at 12:30; Stop 03/06/17 at 12:29 Fentanyl Citrate (Fentanyl 2ml Vial) 25 mcg PRN Q5MIN PRN IV MILD PAIN; Start 03/05/17 at 12:30; Stop 03/06/17 at 12:29 Fentanyl Citrate (Fentanyl 2ml Vial) 50 mcg PRN Q5MIN PRN IV MODERATE PAIN Last administered on 03/05/17 15:03; Start 03/05/17 at 12:30; Stop 03/06/17 at 12: 29 Morphine Sulfate 1 mg 1 mg PRN Q10MIN PRN IV SEVERE PAIN Last administered on 15:21; Start 03/05/17 at 12:30; Stop 03/06/17 at 12:29 Lactated Ringer's (Iv Lactated Ringers) 1,000 ml @ 30 mls/hr Q24H IV Last administered on 03/05/17 12:22; Start 03/05/17 at 12:22; Stop 03/06/17 at 00:21; Status DC Lidocaine HCl 2 ml PRN 1X PRN ID PRIOR TO IV START; Start 03/05/17 at 12:30; Stop 03/06/17 at 12:29 Hydromorphone HCl (Dilaudid) 0.5 mg PRN Q10MIN PRN IV SEV PAIN, Second choice; Start 03/05/17 at 12:30; Stop 03/06/17 at 12:29 Prochlorperazine Edisylate (Compazine) 5 mg PACU PRN PRN IV NAUSEA, MRX1; Start 03/05/17 at 12:30; Stop 03/06/17 at 12:29 Fentanyl Citrate (Fentanyl 2ml Vial) 100 mcg STK-MED ONCE .ROUTE ; Start at 13:55; Stop 03/05/17 at 13:56; Status DC Midazolam HCl (Versed) 2 mg STK-MED ONCE .ROUTE ; Start 03/05/17 at 13:55; Stop 03/05/17 at 13:56; Status DC Ondansetron HCl (Zofran) 4 mg STK-MED ONCE .ROUTE ; Start 03/05/17 at 14:25; Stop 03/05/17 at 14:26; Status DC Dexamethasone Sodium Phosphate 20 mg 20 mg STK-MED ONCE .ROUTE ; Start 03/05/17 at 14:25; Stop 03/05/17 at 14:26; Status DC Propofol (Diprivan) 20 ml @ As Directed STK-MED ONCE IV ; Start 03/05/17 at 14:25 ; Stop 03/05/17 at 14:26; Status DC Lidocaine HCl (Lidocaine HCl 2% Abboject) 100 mg STK-MED ONCE .ROUTE ; Start 03/05/17 at 14:25; Stop 03/05/17 at 14:26; Status DC Sevoflurane (Ultane) 30 ml STK-MED ONCE IH ; Start 03/05/17 at 14:25; Stop at 14:26; Status DC Acetaminophen (Tylenol) 650 mg PRN Q6HRS PRN PO FEVER; Start 03/05/17 at 15:15 Ondansetron HCl (Zofran) 4 mg PRN Q6HRS PRN IV NAUSEA/VOMITING; Start 03/05/17 at 15:15 Vancomycin HCl 1 each 1 each PRN DAILY PRN MC SEE COMMENTS Last administered on 03/06/17t 08:23; Start 03/05/17 at 15:15 Vancomycin HCl/ Sodium Chloride (Iv Sodium Chloride 0.9% 500ml Bag) 500 ml @ 250 mls/hr Q12H IV ; Start 03/05/17 at 15:15; Status UNV Acetaminophen/ Hydrocodone Bitart (Lortab 5/325) 1 tab PRN Q4HRS PRN PO PAIN; Start 03/05/17 at 15:15 Morphine Sulfate 2 mg PRN Q2HR PRN IV PAIN; Start 03/05/17 at 15:15 Morphine Sulfate 4 mg 4 mg PRN Q2HR PRN IV PAIN Last administered on 03/06/17 07:58; Start 03/05/17 at 15:15 Vancomycin HCl/ Sodium Chloride (Iv Sodium Chloride 0.9% 250ml) 250 ml @ 167 mls/hr Q8H IV Last administered on 03/06/17 08:39; Start 03/05/17 at 16:00 Vancomycin HCl 1 each 1X ONCE MC Last administered on 03/06/17 07:30; Start at 07:30; Stop 03/06/17 at 07:31; Status DC Active Scripts Active Clindamycin Hcl 300 Mg Capsule 1 Cap PO TID Tylenol With Codeine #3 Tablet (Acetaminophen/Codeine Phosphate) 1 Each Tablet 1 Tab PO PRN Q4HRS PRN Reported No Known Medications Prior To Admisstion (Info) Each 1 Each Vitals/I & O Vital Sign - Last 24 Hours 03/05/17 03/05/17 03/05/17 03/05/17 14:26 14:35 14:41 14:41 Temp 97.5 97.5 Pulse 65 67 Resp 16 16 14 16 B/P 124/57 121/60 Pulse Ox 100 100 97 100 O2 Delivery Simple Mask Simple Mask Room Air Room Air O2 Flow Rate 10 10.0 03/05/17 03/05/17 03/05/17 03/05/17 14:55 14:56 15:03 15:11 Pulse 68 Resp 18 18 18 16 B/P 141/75 Pulse Ox 98 95 97 97 O2 Delivery Room Air Room Air Room Air Room Air 03/05/17 03/05/17 03/05/17 03/05/17 15:11 15:21 15:32 15:35 Temp 97.3 98.0 97.3 98.0 Pulse 64 62 Resp 16 16 18 B/P 132/57 115/76 Pulse Ox 96 96 95 O2 Delivery Room Air Room Air Room Air Room Air 03/05/17 03/05/17 03/05/17 03/05/17 15:35 15:45 16:00 16:05 Pulse 66 78 Resp 18 18 B/P 129/64 122/70 Pulse Ox 95 96 O2 Delivery Room Air Room Air Room Air Room Air 03/05/17 03/05/17 03/05/17 03/05/17 16:30 16:40 17:00 17:30 Pulse 60 66 58 Resp 18 18 18 B/P 126/69 124/70 115/70 Pulse Ox 93 95 93 O2 Delivery Room Air Room Air Room Air Room Air 03/05/17 03/05/17 03/05/17 03/05/17 18:23 19:00 20:00 22:33 Temp 97.5 97.5 Pulse 85 Resp 20 18 B/P 110/65 Pulse Ox 93 O2 Delivery Room Air Room Air Room Air Room Air 03/05/17 03/06/17 03/06/17 03/06/17 23:20 03:07 03:23 03:37 Temp 97.9 97.5 97.9 97.5 Pulse 84 59 Resp 18 18 20 18 B/P 116/71 124/73 Pulse Ox 96 98 O2 Delivery Room Air Room Air Room Air 03/06/17 03/06/17 03/06/17 03/06/17 07:00 07:58 08:00 08:39 Temp 97.5 97.5 Pulse 73 Resp 20 B/P 122/65 Pulse Ox 95 95 O2 Delivery Room Air Room Air Room Air Room Air 03/06/17 11:05 Temp 97.9 97.9 Pulse 100 Resp 20 B/P 123/52 Pulse Ox 96 O2 Delivery Room Air Intake and Output 03/05/17 03/05/17 03/06/17 15:00 23:00 07:00 Intake Total 1310 ml 260 ml 480 ml Balance 1310 ml 260 ml 480 ml ZOEY MADRID MD March 06, 2017 12:19
--- NOTE | 2017-03-06 13:04 | PDOC ---
PROGRESS NOTES Subjective Subjective doing ok Objective Objective Vital Signs Date Time Temp Pulse Resp B/P Pulse Ox O2 Delivery O2 Flow Rate FiO2 03/06/17 11:05 97.9 100 20 123/52 96 Room Air 97.9 03/05/17 14:35 10.0 Intake and Output 03/06/17 07:00 Intake Total 2050 ml Balance 2050 ml Intake Oral 1050 ml IV Total 1000 ml Physical Exam Physical Exam L breast with packing/dressing Assessment Assessment Problems Medical Problems: (1) Cellulitis of left breast Status: Acute Plan Plan of Care Dressing change today with wound care, discussed case with them; ok to discharge after dressing change when ok with primary service and ID; can FU at wound care center Comment Review of Relevant I have reviewed the following items nabor (where applicable) has been applied. Labs Laboratory Tests Test 03/05/17 06:15 03/06/17 04:20 03/06/17 07:40 White Blood Count 10.5x10^3/uL (4.0-11.0) 11.8x10^3/uL (4.0-11.0) Red Blood Count 4.46x10^6/uL (3.50-5.40) 4.42x10^6/uL (3.50-5.40) Hemoglobin 14.7g/dL (12.0-15.5) 14.2g/dL (12.0-15.5) Hematocrit 41.9% (36.0-47.0) 42.2% (36.0-47.0) Mean Corpuscular Volume 94fL (79-100) 96fL (79-100) Mean Corpuscular Hemoglobin 33pg (25-35) 32pg (25-35) Mean Corpuscular Hemoglobin Concent 35g/dL (31-37) 34g/dL (31-37) Red Cell Distribution Width 13.4% (11.5-14.5) 13.2% (11.5-14.5) Platelet Count 235x10^3/uL (140-400) 226x10^3/uL (140-400) Neutrophils (%) (Auto) 61% (31-73) 89% (31-73) Lymphocytes (%) (Auto) 25% (24-48) 7% (24-48) Monocytes (%) (Auto) 9% (0-9) 4% (0-9) Eosinophils (%) (Auto) 4% (0-3) 0% (0-3) Basophils (%) (Auto) 1% (0-3) 0% (0-3) Neutrophils # (Auto) 6.4x10^3uL (1.8-7.7) 10.5x10^3uL (1.8-7.7) Lymphocytes # (Auto) 2.6x10^3/uL (1.0-4.8) 0.8x10^3/uL (1.0-4.8) Monocytes # (Auto) 1.0x10^3/uL (0.0-1.1) 0.5x10^3/uL (0.0-1.1) Eosinophils # (Auto) 0.5x10^3/uL (0.0-0.7) 0.0x10^3/uL (0.0-0.7) Basophils # (Auto) 0.1x10^3/uL (0.0-0.2) 0.0x10^3/uL (0.0-0.2) Sodium Level 139mmol/L (136-145) 139mmol/L (136-145) Potassium Level 3.7mmol/L (3.5-5.1) 4.2mmol/L (3.5-5.1) Chloride Level 104mmol/L (98-107) 104mmol/L (98-107) Carbon Dioxide Level 29mmol/L (21-32) 27mmol/L (21-32) Anion Gap 6 (6-14) 8 (6-14) Blood Urea Nitrogen 16mg/dL (7-20) 8mg/dL (7-20) Creatinine 0.8mg/dL (0.6-1.0) 0.7mg/dL (0.6-1.0) Estimated GFR (Cockcroft-Gault) 88.1 102.8 BUN/Creatinine Ratio 20 (6-20) Glucose Level 85mg/dL (70-99) 121mg/dL (70-99) Calcium Level 9.2mg/dL (8.5-10.1) 9.0mg/dL (8.5-10.1) Total Bilirubin 0.3mg/dL (0.2-1.0) Aspartate Amino Transf (AST/SGOT) 18U/L (15-37) Alanine Aminotransferase (ALT/SGPT) 29U/L (14-59) Alkaline Phosphatase 112U/L (46-116) Total Protein 7.8g/dL (6.4-8.2) Albumin 3.9g/dL (3.4-5.0) Albumin/Globulin Ratio 1.0 (1.0-1.7) Segmented Neutrophils % 85% (35-66) Band Neutrophils % 1% (0-9) Lymphocytes % 13% (24-48) Monocytes % 1% (0-10) Platelet Estimate Adequate (ADEQUATE) Vancomycin Level Trough 16.2mcg/mL (10.0-20.0) Vancomycin Last Dose Date 03/06/17 Vancomycin Last Dose Time 0000 Laboratory Tests Test 03/06/17 04:20 03/06/17 07:40 White Blood Count 11.8x10^3/uL (4.0-11.0) Red Blood Count 4.42x10^6/uL (3.50-5.40) Hemoglobin 14.2g/dL (12.0-15.5) Hematocrit 42.2% (36.0-47.0) Mean Corpuscular Volume 96fL (79-100) Mean Corpuscular Hemoglobin 32pg (25-35) Mean Corpuscular Hemoglobin Concent 34g/dL (31-37) Red Cell Distribution Width 13.2% (11.5-14.5) Platelet Count 226x10^3/uL (140-400) Neutrophils (%) (Auto) 89% (31-73) Lymphocytes (%) (Auto) 7% (24-48) Monocytes (%) (Auto) 4% (0-9) Eosinophils (%) (Auto) 0% (0-3) Basophils (%) (Auto) 0% (0-3) Neutrophils # (Auto) 10.5x10^3uL (1.8-7.7) Lymphocytes # (Auto) 0.8x10^3/uL (1.0-4.8) Monocytes # (Auto) 0.5x10^3/uL (0.0-1.1) Eosinophils # (Auto) 0.0x10^3/uL (0.0-0.7) Basophils # (Auto) 0.0x10^3/uL (0.0-0.2) Segmented Neutrophils % 85% (35-66) Band Neutrophils % 1% (0-9) Lymphocytes % 13% (24-48) Monocytes % 1% (0-10) Platelet Estimate Adequate (ADEQUATE) Sodium Level 139mmol/L (136-145) Potassium Level 4.2mmol/L (3.5-5.1) Chloride Level 104mmol/L (98-107) Carbon Dioxide Level 27mmol/L (21-32) Anion Gap 8 (6-14) Blood Urea Nitrogen 8mg/dL (7-20) Creatinine 0.7mg/dL (0.6-1.0) Estimated GFR (Cockcroft-Gault) 102.8 Glucose Level 121mg/dL (70-99) Calcium Level 9.0mg/dL (8.5-10.1) Vancomycin Level Trough 16.2mcg/mL (10.0-20.0) Vancomycin Last Dose Date 03/06/17 Vancomycin Last Dose Time 0000 Microbiology 03/05/17 Gram Stain - Final, Complete Medications Current Medications Morphine Sulfate 5 mg 5 mg 1X ONCE IV Last administered on 03/05/17 06:21; Start 03/05/17 at 06:00; Stop 03/05/17 at 06:01; Status DC Ceftriaxone Sodium 1 gm/ Sodium Chloride 50 ml @ 100 mls/hr Q24H IV Last administered on 03/06/17 05:47; Start 03/06/17 at 06:00; Stop 03/06/17 at 10:02; Status DC Ceftriaxone Sodium 50 ml @ 100 mls/hr 1X ONCE IV Last administered on 06:20; Start 03/05/17 at 06:00; Stop 03/05/17 at 06:29; Status DC Vancomycin HCl/ Sodium Chloride (Iv Sodium Chloride 0.9% 500ml Bag) 500 ml @ 250 mls/hr 1X ONCE IV Last administered on 03/05/17 08:14; Start 03/05/17 at 08 :00; Stop 03/05/17 at 09:59; Status DC Morphine Sulfate 2 mg 2 mg PRN Q2HR PRN IV PAIN Last administered on 03/05/17 16:05; Start 03/05/17 at 08:00; Stop 03/06/17 at 08:05; Status DC Sodium Chloride (Iv Sodium Chloride 0.9% 1000ml Bag) 1,000 ml @ 125 mls/hr 1X ONCE IV Last administered on 03/05/17 08:18; Start 03/05/17 at 08:00; Stop at 15:59; Status DC Ondansetron HCl (Zofran) 4 mg PRN Q6HRS PRN IV NAUSEA/VOMITING; Start 03/05/17 at 12:30; Stop 03/06/17 at 12:29; Status DC Fentanyl Citrate (Fentanyl 2ml Vial) 25 mcg PRN Q5MIN PRN IV MILD PAIN; Start 03/05/17 at 12:30; Stop 03/06/17 at 12:29; Status DC Fentanyl Citrate (Fentanyl 2ml Vial) 50 mcg PRN Q5MIN PRN IV MODERATE PAIN Last administered on 03/05/17 15:03; Start 03/05/17 at 12:30; Stop 03/06/17 at 12: 29; Status DC Morphine Sulfate 1 mg 1 mg PRN Q10MIN PRN IV SEVERE PAIN Last administered on 15:21; Start 03/05/17 at 12:30; Stop 03/06/17 at 12:29; Status DC Lactated Ringer's (Iv Lactated Ringers) 1,000 ml @ 30 mls/hr Q24H IV Last administered on 03/05/17 12:22; Start 03/05/17 at 12:22; Stop 03/06/17 at 00:21; Status DC Lidocaine HCl 2 ml PRN 1X PRN ID PRIOR TO IV START; Start 03/05/17 at 12:30; Stop 03/06/17 at 12:29; Status DC Hydromorphone HCl (Dilaudid) 0.5 mg PRN Q10MIN PRN IV SEV PAIN, Second choice; Start 03/05/17 at 12:30; Stop 03/06/17 at 12:29; Status DC Prochlorperazine Edisylate (Compazine) 5 mg PACU PRN PRN IV NAUSEA, MRX1; Start 03/05/17 at 12:30; Stop 03/06/17 at 12:29; Status DC Fentanyl Citrate (Fentanyl 2ml Vial) 100 mcg STK-MED ONCE .ROUTE ; Start at 13:55; Stop 03/05/17 at 13:56; Status DC Midazolam HCl (Versed) 2 mg STK-MED ONCE .ROUTE ; Start 03/05/17 at 13:55; Stop 03/05/17 at 13:56; Status DC Ondansetron HCl (Zofran) 4 mg STK-MED ONCE .ROUTE ; Start 03/05/17 at 14:25; Stop 03/05/17 at 14:26; Status DC Dexamethasone Sodium Phosphate 20 mg 20 mg STK-MED ONCE .ROUTE ; Start 03/05/17 at 14:25; Stop 03/05/17 at 14:26; Status DC Propofol (Diprivan) 20 ml @ As Directed STK-MED ONCE IV ; Start 03/05/17 at 14:25 ; Stop 03/05/17 at 14:26; Status DC Lidocaine HCl (Lidocaine HCl 2% Abboject) 100 mg STK-MED ONCE .ROUTE ; Start 03/05/17 at 14:25; Stop 03/05/17 at 14:26; Status DC Sevoflurane (Ultane) 30 ml STK-MED ONCE IH ; Start 03/05/17 at 14:25; Stop at 14:26; Status DC Acetaminophen (Tylenol) 650 mg PRN Q6HRS PRN PO FEVER; Start 03/05/17 at 15:15 Ondansetron HCl (Zofran) 4 mg PRN Q6HRS PRN IV NAUSEA/VOMITING; Start 03/05/17 at 15:15 Vancomycin HCl 1 each 1 each PRN DAILY PRN MC SEE COMMENTS Last administered on 03/06/17t 08:23; Start 03/05/17 at 15:15 Vancomycin HCl/ Sodium Chloride (Iv Sodium Chloride 0.9% 500ml Bag) 500 ml @ 250 mls/hr Q12H IV ; Start 03/05/17 at 15:15; Status UNV Acetaminophen/ Hydrocodone Bitart (Lortab 5/325) 1 tab PRN Q4HRS PRN PO PAIN; Start 03/05/17 at 15:15 Morphine Sulfate 2 mg PRN Q2HR PRN IV PAIN; Start 03/05/17 at 15:15 Morphine Sulfate 4 mg 4 mg PRN Q2HR PRN IV PAIN Last administered on 03/06/17 07:58; Start 03/05/17 at 15:15 Vancomycin HCl/ Sodium Chloride (Iv Sodium Chloride 0.9% 250ml) 250 ml @ 167 mls/hr Q8H IV Last administered on 03/06/17 08:39; Start 03/05/17 at 16:00 Vancomycin HCl 1 each 1X ONCE MC Last administered on 03/06/17 07:30; Start at 07:30; Stop 03/06/17 at 07:31; Status DC Active Scripts Active Clindamycin Hcl 300 Mg Capsule 1 Cap PO TID Tylenol With Codeine #3 Tablet (Acetaminophen/Codeine Phosphate) 1 Each Tablet 1 Tab PO PRN Q4HRS PRN Reported No Known Medications Prior To Admisstion (Info) Each 1 Each MC Vitals/I & O Vital Sign - Last 24 Hours 03/05/17 03/05/17 03/05/17 03/05/17 14:26 14:35 14:41 14:41 Temp 97.5 97.5 Pulse 65 67 Resp 16 16 14 16 B/P 124/57 121/60 Pulse Ox 100 100 97 100 O2 Delivery Simple Mask Simple Mask Room Air Room Air O2 Flow Rate 10 10.0 03/05/17 03/05/17 03/05/17 03/05/17 14:55 14:56 15:03 15:11 Pulse 68 Resp 18 18 18 16 B/P 141/75 Pulse Ox 98 95 97 97 O2 Delivery Room Air Room Air Room Air Room Air 03/05/17 03/05/17 03/05/17 03/05/17 15:11 15:21 15:32 15:35 Temp 97.3 98.0 97.3 98.0 Pulse 64 62 Resp 16 16 18 B/P 132/57 115/76 Pulse Ox 96 96 95 O2 Delivery Room Air Room Air Room Air Room Air 03/05/17 03/05/17 03/05/17 03/05/17 15:35 15:45 16:00 16:05 Pulse 66 78 Resp 18 18 B/P 129/64 122/70 Pulse Ox 95 96 O2 Delivery Room Air Room Air Room Air Room Air 03/05/17 03/05/17 03/05/17 03/05/17 16:30 16:40 17:00 17:30 Pulse 60 66 58 Resp 18 18 18 B/P 126/69 124/70 115/70 Pulse Ox 93 95 93 O2 Delivery Room Air Room Air Room Air Room Air 03/05/17 03/05/17 03/05/17 03/05/17 18:23 19:00 20:00 22:33 Temp 97.5 97.5 Pulse 85 Resp 20 18 B/P 110/65 Pulse Ox 93 O2 Delivery Room Air Room Air Room Air Room Air 03/05/17 03/06/17 03/06/17 03/06/17 23:20 03:07 03:23 03:37 Temp 97.9 97.5 97.9 97.5 Pulse 84 59 Resp 18 18 20 18 B/P 116/71 124/73 Pulse Ox 96 98 O2 Delivery Room Air Room Air Room Air 03/06/17 03/06/17 03/06/17 03/06/17 07:00 07:58 08:00 08:39 Temp 97.5 97.5 Pulse 73 Resp 20 B/P 122/65 Pulse Ox 95 95 O2 Delivery Room Air Room Air Room Air Room Air 03/06/17 11:05 Temp 97.9 97.9 Pulse 100 Resp 20 B/P 123/52 Pulse Ox 96 O2 Delivery Room Air Intake and Output 03/05/17 03/05/17 03/06/17 15:00 23:00 07:00 Intake Total 1310 ml 260 ml 480 ml Balance 1310 ml 260 ml 480 ml REUBEN MORRISON MD March 06, 2017 13:04
[2017-03-06] MEDS ORDERED: MORPHINE SULFATE 2 MG/ML DISP.SYRIN. IV ONE (14:45)
[2017-03-06 15:02] VITALS: BP 126/73
[2017-03-06] MEDS: HYDROcodone/APAP 5/325MG 1 TAB TABLET PO PRN ×2 (16:37→23:02)
[2017-03-06 19:43] VITALS: BP 139/48
[2017-03-06 23:05] VITALS: BP 129/63
--- NOTE | 2017-03-06 23:44 | CONS ---
DATE OF CONSULTATION: 03/06/2017 REQUESTING PHYSICIAN: Dr. Seng Garcia and Dr. Plascencia. REASON FOR CONSULTATION: Breast abscess. HISTORY OF PRESENT ILLNESS: This is a 26-year-old female with no significant past medical history who presented with left breast swelling and pain. The patient says she has noticed a little bump in November and it improved, settled down until the February. It started again ____ and started getting worse. The patient was investigated and then found to have abscess. The patient was taken to the OR and I and D was done. Gram stain is showing gram-positive cocci in clusters. The patient is receiving vancomycin and Rocephin and consult has been requested. The patient denies any nausea, vomiting, diarrhea, chest pain, shortness of breath, abdominal pain, urinary symptoms or bowel symptoms. PAST MEDICAL HISTORY: Unremarkable. SOCIAL HISTORY: Positive for smoking, no alcohol use or drug use. ALLERGIES: No known drug allergies. CURRENT MEDICATIONS: Reviewed. The patient is on vancomycin and Rocephin. REVIEW OF SYSTEMS: As per HPI, all other systems reviewed and are negative. PHYSICAL EXAMINATION: GENERAL: Alert, oriented female, not in distress. VITAL SIGNS: Stable, afebrile. HEENT: NAD. NECK: Supple, no JVP, no lymphadenopathy. LUNGS: Clear. HEART: S1, S2 regular. ABDOMEN: Benign. EXTREMITIES: No edema or cyanosis. SKIN: Unremarkable except left breast examination done with Constanza patient's RN. There is swelling, induration, tenderness present and packing present ____. NEUROLOGIC: The patient is neurologically intact. LABORATORY DATA: White count is 11.8, BUN and creatinine is normal. Culture is pending. Gram stain with gram-positive cocci. IMPRESSION: 1. Left breast abscess, status post incision and drainage. 2. Leukocytosis. RECOMMENDATIONS: Continue vancomycin, discontinue Rocephin. Once the culture results are final, we will adjust soon to be able to discharge, may be tomorrow home on oral antibiotics. Thank you very much, Dr. Plascencia, for giving me the opportunity to participate in this patient's care. KWASI YEN MD DR: REZA/johnathan JOB#: [id number] / [id number]
[2017-03-07] MEDS: VANCOMYCIN 1.25 GM in IV NORMAL SALINE 250ML 250 ML IV SCH (00:29)
[2017-03-07] MEDS: HYDROcodone/APAP 5/325MG 1 TAB TABLET PO PRN ×2 (02:09→09:53)
[2017-03-07 07:00] VITALS: BP 125/62
[2017-03-07 07:59] LABS: BASO % 1 % (0-3); CALCIUM 8.8 mg/dL (8.5-10.1); CREATININE 0.8 mg/dL (0.6-1.0); EOS % 3 % (0-3); GFR 88.1; HEMATOCRIT 39.6 % (36.0-47.0); HEMOGLOBIN 13.3 g/dL (12.0-15.5); LYMPH # 2.2 x10^3/uL (1.0-4.8); LYMPH % 29 % (24-48); MEAN CORPUSCULAR HEMOGLOBIN 32 pg (25-35); MEAN CORPUSCULAR HGB CONC 34 g/dL (31-37); MEAN CORPUSCULAR VOLUME 96 fL (79-100); MONO % 8 % (0-9); NEUT % 60 % (31-73); PLATELET COUNT 209 x10^3/uL (140-400); POTASSIUM 4.6 mmol/L (3.5-5.1); RED BLOOD COUNT 4.11 x10^6/uL (3.50-5.40); RED CELL DISTRIBUTION WIDTH 13.5 % (11.5-14.5); WHITE BLOOD COUNT 7.7 x10^3/uL (4.0-11.0)
--- NOTE | 2017-03-07 08:53 | PDOC ---
Infectious Disease Note Subjective Subjective pt feeling good ROS ROS GEN: Denies fevers, chills, sweats HEENT: Denies blurred vision, sore throat CV: Denies chest pain RESP: Denies shortness of air, cough GI: Denies n/v/d NEURO: Denies confusion, dizziness MSK: Denies weakness, joint pain/swelling Vital Sign Vital Signs Vital Signs Date Time Temp Pulse Resp B/P (MAP) Pulse Ox O2 Delivery O2 Flow Rate FiO2 03/07/17 02:34 Room Air 03/06/17 23:05 97.9 66 20 129/63 (85) 100 97.9 Physical Exam PHYSICAL EXAM GENERAL: NAD, Alert HEENT: PERRL, OC/OP NECK: Supple, no JVD, no LN LUNGS: Clear HEART: S1S2, no gallop, no murmur ABD: Soft, NT, no organomegaly, no rebound EXT: No edema, no cyanosis REGISTERED TRAVEL NURSE: Alert, oriented x 3, no focal neurologic deficit SKIN: No rash,, breast area looks good, small packing in place IV: ok Labs Lab Laboratory Tests Test 03/07/17 04:00 White Blood Count 7.7 x10^3/uL (4.0-11.0) Red Blood Count 4.11 x10^6/uL (3.50-5.40) Hemoglobin 13.3 g/dL (12.0-15.5) Hematocrit 39.6 % (36.0-47.0) Mean Corpuscular Volume 96 fL (79-100) Mean Corpuscular Hemoglobin 32 pg (25-35) Mean Corpuscular Hemoglobin Concent 34 g/dL (31-37) Red Cell Distribution Width 13.5 % (11.5-14.5) Platelet Count 209 x10^3/uL (140-400) Neutrophils (%) (Auto) 60 % (31-73) Lymphocytes (%) (Auto) 29 % (24-48) Monocytes (%) (Auto) 8 % (0-9) Eosinophils (%) (Auto) 3 % (0-3) Basophils (%) (Auto) 1 % (0-3) Neutrophils # (Auto) 4.6 x10^3uL (1.8-7.7) Lymphocytes # (Auto) 2.2 x10^3/uL (1.0-4.8) Monocytes # (Auto) 0.6 x10^3/uL (0.0-1.1) Eosinophils # (Auto) 0.2 x10^3/uL (0.0-0.7) Basophils # (Auto) 0.0 x10^3/uL (0.0-0.2) Sodium Level 143 mmol/L (136-145) Potassium Level 4.6 mmol/L (3.5-5.1) Chloride Level 107 mmol/L (98-107) Carbon Dioxide Level 31 mmol/L (21-32) Anion Gap 5 (6-14) Blood Urea Nitrogen 12 mg/dL (7-20) Creatinine 0.8 mg/dL (0.6-1.0) Estimated GFR (Cockcroft-Gault) 88.1 Glucose Level 91 mg/dL (70-99) Calcium Level 8.8 mg/dL (8.5-10.1) Micro culture neg so far Objective Assessment Left breast abscess s/p I and D , staph species Leukocytosis Plan Plan of Care d/c ok on keflex, pt to call my office tomorrow for culture results, may need antibiotics adjusted check cultures and then adjust supportive care KWASI YEN MD March 07, 2017 08:53
[2017-03-07] MEDS ORDERED: HYDR-2666 PO (09:15)
--- NOTE | 2017-03-07 09:22 | PDOC ---
LION ACUNA MOUNTER SOUSAPHONES 03/07/17 0922: SURGICAL PROGRESS NOTE Subjective tolerating diet incisional pain mom will help with wound care at home Vital Signs Vital Signs Date Time Temp Pulse Resp B/P (MAP) Pulse Ox O2 Delivery O2 Flow Rate FiO2 03/07/17 07:00 98.7 59 18 125/62 (83) 96 Room Air 98.7 I&O Intake and Output 03/07/17 07:00 Intake Total 320 ml Balance 320 ml Intake Oral 320 ml # Voids 3 General: Alert, Oriented X3, Cooperative, No acute distress Skin: Other (left breast wound packed, no surrounding erythema/induration ) Labs Laboratory Tests Test 03/06/17 04:20 03/06/17 07:40 03/07/17 04:00 White Blood Count 11.8 x10^3/uL (4.0-11.0) 7.7 x10^3/uL (4.0-11.0) Red Blood Count 4.42 x10^6/uL (3.50-5.40) 4.11 x10^6/uL (3.50-5.40) Hemoglobin 14.2 g/dL (12.0-15.5) 13.3 g/dL (12.0-15.5) Hematocrit 42.2 % (36.0-47.0) 39.6 % (36.0-47.0) Mean Corpuscular Volume 96 fL (79-100) 96 fL (79-100) Mean Corpuscular Hemoglobin 32 pg (25-35) 32 pg (25-35) Mean Corpuscular Hemoglobin Concent 34 g/dL (31-37) 34 g/dL (31-37) Red Cell Distribution Width 13.2 % (11.5-14.5) 13.5 % (11.5-14.5) Platelet Count 226 x10^3/uL (140-400) 209 x10^3/uL (140-400) Neutrophils (%) (Auto) 89 % (31-73) 60 % (31-73) Lymphocytes (%) (Auto) 7 % (24-48) 29 % (24-48) Monocytes (%) (Auto) 4 % (0-9) 8 % (0-9) Eosinophils (%) (Auto) 0 % (0-3) 3 % (0-3) Basophils (%) (Auto) 0 % (0-3) 1 % (0-3) Neutrophils # (Auto) 10.5 x10^3uL (1.8-7.7) 4.6 x10^3uL (1.8-7.7) Lymphocytes # (Auto) 0.8 x10^3/uL (1.0-4.8) 2.2 x10^3/uL (1.0-4.8) Monocytes # (Auto) 0.5 x10^3/uL (0.0-1.1) 0.6 x10^3/uL (0.0-1.1) Eosinophils # (Auto) 0.0 x10^3/uL (0.0-0.7) 0.2 x10^3/uL (0.0-0.7) Basophils # (Auto) 0.0 x10^3/uL (0.0-0.2) 0.0 x10^3/uL (0.0-0.2) Segmented Neutrophils % 85 % (35-66) Band Neutrophils % 1 % (0-9) Lymphocytes % 13 % (24-48) Monocytes % 1 % (0-10) Platelet Estimate Adequate (ADEQUATE) Sodium Level 139 mmol/L (136-145) 143 mmol/L (136-145) Potassium Level 4.2 mmol/L (3.5-5.1) 4.6 mmol/L (3.5-5.1) Chloride Level 104 mmol/L (98-107) 107 mmol/L (98-107) Carbon Dioxide Level 27 mmol/L (21-32) 31 mmol/L (21-32) Anion Gap 8 (6-14) 5 (6-14) Blood Urea Nitrogen 8 mg/dL (7-20) 12 mg/dL (7-20) Creatinine 0.7 mg/dL (0.6-1.0) 0.8 mg/dL (0.6-1.0) Estimated GFR (Cockcroft-Gault) 102.8 88.1 Glucose Level 121 mg/dL (70-99) 91 mg/dL (70-99) Calcium Level 9.0 mg/dL (8.5-10.1) 8.8 mg/dL (8.5-10.1) Vancomycin Level Trough 16.2 mcg/mL (10.0-20.0) Vancomycin Last Dose Date 03/06/17 Vancomycin Last Dose Time 0000 Laboratory Tests Test 03/07/17 04:00 White Blood Count 7.7 x10^3/uL (4.0-11.0) Red Blood Count 4.11 x10^6/uL (3.50-5.40) Hemoglobin 13.3 g/dL (12.0-15.5) Hematocrit 39.6 % (36.0-47.0) Mean Corpuscular Volume 96 fL (79-100) Mean Corpuscular Hemoglobin 32 pg (25-35) Mean Corpuscular Hemoglobin Concent 34 g/dL (31-37) Red Cell Distribution Width 13.5 % (11.5-14.5) Platelet Count 209 x10^3/uL (140-400) Neutrophils (%) (Auto) 60 % (31-73) Lymphocytes (%) (Auto) 29 % (24-48) Monocytes (%) (Auto) 8 % (0-9) Eosinophils (%) (Auto) 3 % (0-3) Basophils (%) (Auto) 1 % (0-3) Neutrophils # (Auto) 4.6 x10^3uL (1.8-7.7) Lymphocytes # (Auto) 2.2 x10^3/uL (1.0-4.8) Monocytes # (Auto) 0.6 x10^3/uL (0.0-1.1) Eosinophils # (Auto) 0.2 x10^3/uL (0.0-0.7) Basophils # (Auto) 0.0 x10^3/uL (0.0-0.2) Sodium Level 143 mmol/L (136-145) Potassium Level 4.6 mmol/L (3.5-5.1) Chloride Level 107 mmol/L (98-107) Carbon Dioxide Level 31 mmol/L (21-32) Anion Gap 5 (6-14) Blood Urea Nitrogen 12 mg/dL (7-20) Creatinine 0.8 mg/dL (0.6-1.0) Estimated GFR (Cockcroft-Gault) 88.1 Glucose Level 91 mg/dL (70-99) Calcium Level 8.8 mg/dL (8.5-10.1) Problem List Problems Medical Problems: (1) Cellulitis of left breast Status: Acute Assessment/Plan s/p I&D breast abscess wound care, abx d/w Valeria, pts mom will be doing dressings at home, ok to FU in office with Dr Garcia 2 weeks Problems: REUBEN GARCIA MD 03/07/17 1750: SURGICAL PROGRESS NOTE Assessment/Plan Agree with above Problems: LION ACUNA APRN March 07, 2017 09:22 REUBEN GARCIA MD March 07, 2017 17:50
[2017-03-07 11:00] VITALS: BP 123/68
--- NOTE | 2017-03-07 11:48 | PDOC3 ---
Discharge Summary [facility] Date of Admission: March 05, 2017 Discharge Date: March 07, 2017 Admitting Diagnosis 1. left breast cellulitis/abccess s/p i and d on 03/05 2. obesity 3. tobaccoism Problems: Final Diagnosis CONSULTS sx id Procedures i and d Brief Hospital Course 26yo F, comes for left breast pain. Pt started to feel some left breast pain since 11/2016, worse recently and got clinda from ER but not improve. She got the piercing removed in 10/2016. Pt got i and d on 03/05, heals well, still need changing packing every other day. Cx neg so far. ok to dc, with keflex, call id tmr for cx. dc time 35min General: Alert, Oriented X3, Cooperative, No acute distress Heart: Regular rate, No murmurs Abdomen: Soft, No tenderness Extremities: No clubbing, No cyanosis, No edema Skin: left breast has a small wound with packing. Patient History: FHx: breast cancer Grandmother FHx: diabetes mellitus 32 MOTHER Grandmother FHx: hypertension 33 FATHER FHx: lung cancer Grandmother Problems: Disposition home CONDITION AT DISCHARGE: Improved Diet regular Scheduled PRN Acetaminophen With Codeine (Tylenol With Codeine #3 Tablet), 1 TAB PO PRN Q4HRS PRN for PAIN Hydrocodone Bit/Acetaminophen (Hydrocodone-Apap 5-325 ), 1 TAB PO PRN Q4HRS PRN for PAIN Discontinued Medications Clindamycin Hcl (Clindamycin Hcl), 1 CAP PO TID Info (No Known Medications Prior To Admisstion), 1 EACH MC, (Reported) Follow Up sx and id in 2weeks ZOEY MADRID MD March 07, 2017 11:47
== END 2017-03-07 12:35 | disposition home or self-care (01) | DRG 855 ==
LOC: ER 05:25 → 4 NORTH 08:00
PROVIDERS: ADMIT Internal Medicine; ATTEND Internal Medicine
PROC: 0W380ZZ Control Bleeding in Chest Wall, Open Approach (ICD-10-PCS; 2017-03-05)
PROC: 0H9U0ZZ Drainage of Left Breast, Open Approach (ICD-10-PCS; principal; 2017-03-05 14:00)
DX: A41.9 Sepsis, unspecified organism (principal); N61.1 Abscess of the breast and nipple; E66.9 Obesity, unspecified; F17.210 Nicotine dependence, cigarettes, uncomplicated; N64.4 Mastodynia; Z80.1 Family history of malignant neoplasm of trachea, bronchus and lung; Z68.30 Body mass index [BMI] 30.0-30.9, adult; Z80.3 Family history of malignant neoplasm of breast; Z82.49 Family history of ischemic heart disease and other diseases of the circulatory system; Z83.3 Family history of diabetes mellitus
CPT/HCPCS: 36415; 76641; 80048; 80053; 80202; 85007; 85027; 87071; 87075; 87205; 96361; 96365; 96367; 96375; 99406; J0690; J0696; J1100; J2250; J2270; J2405; J2704; J3010; J3370; J7030; J7040; J7050; J7120; 99285-25

== ENCOUNTER 2017-07-27 13:04 | Emergency (ER) | payer OTHER ==
[~2017-07-27] VITALS: Ht 167.6 cm; Wt 86.2 kg
[~2017-07-27 13:04] MED LIST changes: +CLIN300C8 PO; -CLIN300C86 PO; +HYDR-2758 PO
[2017-07-27 13:50] VITALS: BP 131/63
[2017-07-27] MEDS ORDERED: DIPHTH,PERTUSS(ACELL),TET TOX 0.5 ML DISP.SYRIN. VAX IM ONE (15:00)
[2017-07-27] MEDS ORDERED: HYDROcodone/APAP 5/325MG 1 TAB TABLET PO ONE (15:00)
[2017-07-27] MEDS ORDERED: SULF1TAB24 PO (15:20)
[2017-07-27] MEDS ORDERED: ACET-704 PO (15:20)
--- NOTE | 2017-07-27 15:20 | PHYS DOC ---
Past Medical History Past Medical History: No Pertinent History Past Surgical History: No Surgical History Alcohol Use: None Drug Use: None Adult General Chief Complaint Chief Complaint: INSECT BITE HPI HPI Patient is a 27 year old female with no significant medical history who presents with an area of redness and swelling on the right thigh that she noted 2 days ago. Patient denies any fever. Denies any drainage from the area. Review of Systems Review of Systems Constitutional: See history of present illness Musculoskeletal: Denies back pain or joint pain [] Integument: area of redness and swelling on the right thigh Neurologic: Denies headache, focal weakness or sensory changes [] Current Medications Current Medications Current Medications Medications (Trade) Dose Ordered Sig/Brandan Start Time Stop Time Status Last Admin Dose Admin Acetaminophen/ Hydrocodone Bitart (Lortab 5/325) 1 tab 1X ONCE 07/27/17 15:00 07/27/17 15:01 DC 07/27/17 14:52 1 TAB Diphtheria/ Tetanus/Acell Pertussis (Boostrix) 0.5 ml ONCE ONCE 07/27/17 15:00 07/27/17 15:01 DC 07/27/17 14:53 0.5 ML Allergies Allergies Allergies Coded Allergies Type Severity Reaction Last Updated Verified No Known Drug Allergies 07/18/15 No Physical Exam Physical Exam Constitutional: Well developed, well nourished, no acute distress, non-toxic appearance. [] Skin: Right thigh with an area of cellulitis approximately 5 x 3 cm. The area has a firm Center with an open puncture wound. There is no drainage to the area. The area is warm tender to touch. No fluctuance noted. Back: No tenderness, no CVA tenderness. [] Extremities: No tenderness, no cyanosis, no clubbing, ROM intact, no edema. [] Neurologic: Alert and oriented X 3, normal motor function, normal sensory function, no focal deficits noted. [] Psychologic: Affect normal, judgement normal, mood normal. [] Current Patient Data Vital Signs Vital Signs Date Time Temp Pulse Resp B/P (MAP) Pulse Ox O2 Delivery O2 Flow Rate FiO2 07/27/17 13:50 98.1 79 16 98 Room Air 98.1 EKG EKG [] Radiology/Procedures Radiology/Procedures [] Course & Med Decision Making Course & Med Decision Making Pertinent Labs and Imaging studies reviewed. (See chart for details) Patient is an abscess with cellulitis on the right thigh. The abscess is not ready to be drained. Discharged on Bactrim. Recommended warm compresses to the area. Instructed. Return to the ED at any point wound condition worsens or is ready to be drained. Follow-up with PCP in 1-2 weeks. Tetanus was updated today. Dragon Disclaimer Dragon Disclaimer This electronic medical record was generated, in whole or in part, using a voice recognition dictation system. Departure Departure Impression: Primary Impression: Cellulitis of right thigh Additional Impression: Abscess of right thigh Disposition: HOME, SELF-CARE Condition: STABLE Referrals: NO PCP (PCP) follow-up with your doctor in one week Patient Instructions: Abscess, Care After Additional Instructions: You were seen with an abscess and cellulitis of the right thigh. Keep the area clean and dry. Apply warm compresses to the area twice a day. Return to the ED at any point wound condition worsens or you have a fever. Ensure you complete your antibiotics. He was given tetanus in the ED. Scripts Acetaminophen With Codeine (TYLENOL WITH CODEINE #3 TABLET) 1 Each Tablet 1 TAB PO PRN Q6HRS Y for PAIN, #30 TAB Prov: BRENNON MARQUEZ APRN 07/27/17 Sulfamethoxazole/Trimethoprim (BACTRIM DS TABLET) 1 Each Tablet 1 TAB PO BID, #20 TAB Prov: BRENNON MARQUEZ APRN 07/27/17 Problem Qualifiers BRENNON MARQUEZ APRN Jul 27, 2017 15:20
== END 2017-07-27 15:34 | disposition home or self-care (01) ==
LOC: ER 13:04
DX: L03.115 Cellulitis of right lower limb (principal); L02.415 Cutaneous abscess of right lower limb
CPT/HCPCS: 90471; 90715; 99283-25

== ENCOUNTER 2017-07-28 13:32 | Emergency (ER) | payer OTHER ==
[~2017-07-28] VITALS: Ht 167.6 cm; Wt 81.6 kg
[~2017-07-28 13:32] MED LIST changes: +SULF1TAB24 PO
[2017-07-28 14:50] VITALS: BP 134/74
[2017-07-28] MEDS ORDERED: cefTRIAXone IM 1 GM VIAL IM ONE (15:30)
[2017-07-28] MEDS ORDERED: LIDOCAINE 1% / SOD BICARB 8.4% 20 ML VIAL. IJ ONE (15:30)
[2017-07-28] MEDS ORDERED: LIDOCAINE 1% PF 2 ML VIAL. INJ ONE (15:30)
--- NOTE | 2017-07-28 15:53 | PHYS DOC ---
Past Medical History Past Medical History: No Pertinent History Past Surgical History: No Surgical History Alcohol Use: None Drug Use: None Adult General Chief Complaint Chief Complaint: INSECT BITE HPI HPI Patient is a 27 year old female who presents to be evaluated for an abscess and cellulitis of the right thigh that she's had for 2 days. Patient was in the ED yesterday for the same complaint. I put on Bactrim. She states that her area of redness has grown bigger but the middle of the area has come to a head. Patient states she has been taking her antibiotics since yesterday. Patient denies any fever. Denies any drainage to the area. Review of Systems Review of Systems Constitutional: Denies fever or chills [] GI: Denies abdominal pain, nausea, vomiting, bloody stools or diarrhea [] : Denies dysuria or hematuria [] Musculoskeletal: Denies back pain or joint pain [] Integument: Abscess and cellulitis to the right thigh Neurologic: Denies headache, focal weakness or sensory changes [] Current Medications Current Medications Current Medications Medications (Trade) Dose Ordered Sig/Brandan Start Time Stop Time Status Last Admin Dose Admin Ceftriaxone Sodium (Rocephin Im) 1 gm 1X ONCE 07/28/17 15:30 07/28/17 15:31 DC 07/28/17 15:53 1 GM Lidocaine HCl (Xylocaine-Mpf 1% Vial) 2 ml 1X ONCE 07/28/17 15:30 07/28/17 15:31 DC 07/28/17 15:54 2 ML Lidocaine/Sodium Bicarbonate (Buffered Lidocaine 1%) 20 ml 1X ONCE 07/28/17 15:30 07/28/17 15:31 DC Allergies Allergies Allergies Coded Allergies Type Severity Reaction Last Updated Verified No Known Drug Allergies 07/18/15 No Physical Exam Physical Exam Constitutional: Well developed, well nourished, no acute distress, non-toxic appearance. [] Skin: Warm, dry, right ventral thigh with an area of cellulitis approx. 10X5 cm with a center with yellow drainage. The area is warm to touch and very tender and fluctuance, Back: No tenderness, no CVA tenderness. [] Extremities: No tenderness, no cyanosis, no clubbing, ROM intact, no edema. [] Neurologic: Alert and oriented X 3, normal motor function, normal sensory function, no focal deficits noted. [] Psychologic: Affect normal, judgement normal, mood normal. [] Current Patient Data Vital Signs Vital Signs Date Time Temp Pulse Resp B/P (MAP) Pulse Ox O2 Delivery O2 Flow Rate FiO2 07/28/17 14:50 98.3 80 17 100 Room Air 98.3 EKG EKG [] Radiology/Procedures Radiology/Procedures Indication: abscess on the right thigh Procedure: The patient was positioned appropriately. Local anesthesia was 1% buffered lidocaine. An incision was then made over the apex of the lesion and mild amount of yellow bloody material was expressed. The drainage cavity was irrigated and packed with sterile gauze. The patients tetanus status updated as needed. The patient tolerated the procedure well. Complications: none.[] Course & Med Decision Making Course & Med Decision Making Pertinent Labs and Imaging studies reviewed. (See chart for details) Patient is in the ED with an abscess and cellulitis of the right thigh. She is in the ED yesterday and they put on Bactrim. The abscess has come to a head. I did an I&D. The area was packed. She is return to the ED in 2 days for wound check and packing removal. She was given Rocephin injection and instructed to continue taking the Bactrim. She was provided return precautions and discharged in stable condition. Dragon Disclaimer Dragon Disclaimer This electronic medical record was generated, in whole or in part, using a voice recognition dictation system. Departure Departure Impression: Primary Impression: Cellulitis of right thigh Additional Impression: Abscess of right thigh Disposition: HOME, SELF-CARE Condition: STABLE Referrals: NO PCP (PCP) Follow-up with the emergency room in 2 days for wound check Patient Instructions: Abscess, Care After, Cellulitis Additional Instructions: We drained the abscess on the right thigh. Continue taking antibiotics. Keep the area clean and dry. Come back to the emergency room in 2 days for wound check and packing removal. Please return to the emergency room at any point symptoms worsen especially if you develop a fever. Problem Qualifiers BRENNON MARQUEZ APRN Jul 28, 2017 15:53
== END 2017-07-28 16:38 | disposition home or self-care (01) ==
LOC: ER 13:32
DX: L03.115 Cellulitis of right lower limb (principal); L02.415 Cutaneous abscess of right lower limb
CPT/HCPCS: 10060; 96372; 99283; J0696

== ENCOUNTER 2017-07-30 13:52 | Emergency (ER) | payer OTHER ==
[~2017-07-30] VITALS: Ht 167.6 cm; Wt 81.6 kg
[2017-07-30 14:14] VITALS: BP 132/70
--- NOTE | 2017-07-30 14:32 | PHYS DOC ---
Past Medical History Past Medical History: No Pertinent History Past Surgical History: No Surgical History Alcohol Use: None Drug Use: None Adult General Chief Complaint Chief Complaint: WOUND RECHECK/SUTURE REMOVAL HPI HPI Patient is a 27 year old female presents the ED for wound re-evaluation and a packing. Taking Bactrim at home. No complications. Notes wound healing well. Denies fever, headache, vision changes, abdominal pain, nausea/vomiting. Review of Systems Review of Systems Constitutional: Denies fever or chills [] Eyes: Denies change in visual acuity, redness, or eye pain [] HENT: Denies nasal congestion or sore throat [] Respiratory: Denies cough or shortness of breath [] Cardiovascular: No additional information not addressed in HPI [] GI: Denies abdominal pain, nausea, vomiting, bloody stools or diarrhea [] : Denies dysuria or hematuria [] Musculoskeletal: Denies back pain or joint pain [] Integument: Denies rash or skin lesions [] Neurologic: Denies headache, focal weakness or sensory changes [] Endocrine: Denies polyuria or polydipsia [] Allergies Allergies Allergies Coded Allergies Type Severity Reaction Last Updated Verified No Known Drug Allergies 07/18/15 No Physical Exam Physical Exam Constitutional: Well developed, well nourished, no acute distress, non-toxic appearance. [] HENT: Normocephalic, atraumatic, bilateral external ears normal, oropharynx moist, no oral exudates, nose normal. [] Eyes: PERRLA, EOMI, conjunctiva normal, no discharge. [] Neck: Normal range of motion, no tenderness, supple, no stridor. [] Cardiovascular:Heart rate regular rhythm, no murmur [] Lungs & Thorax: Bilateral breath sounds clear to auscultation [] Abdomen: Bowel sounds normal, soft, no tenderness, no masses, no pulsatile masses. [] Skin: Warm, dry, WOUND HEALING WELL. PACKING IN PLACE. [] Back: No tenderness, no CVA tenderness. [] Extremities: No tenderness, no cyanosis, no clubbing, ROM intact, no edema. [] Neurologic: Alert and oriented X 3, normal motor function, normal sensory function, no focal deficits noted. [] Psychologic: Affect normal, judgement normal, mood normal. [] Current Patient Data Vital Signs Vital Signs Date Time Temp Pulse Resp B/P (MAP) Pulse Ox O2 Delivery O2 Flow Rate FiO2 07/30/17 14:14 98.6 78 18 97 Room Air 98.6 EKG EKG [] Radiology/Procedures Radiology/Procedures [] Course & Med Decision Making Course & Med Decision Making Pertinent Labs and Imaging studies reviewed. (See chart for details) Packing removed and wound repacked. No competitions. Discussed follow-up in 3 days for re-evaluation and continuing Bactrim at home.[] Dragon Disclaimer Dragon Disclaimer This electronic medical record was generated, in whole or in part, using a voice recognition dictation system. Departure Departure Impression: Primary Impression: Abscess of right thigh Additional Impression: Primary dressing of wound Disposition: HOME, SELF-CARE Condition: STABLE Referrals: NO PCP (PCP) Patient Instructions: Wound Check Problem Qualifiers CARINE VARGAS Jul 30, 2017 14:32
== END 2017-07-30 14:54 | disposition home or self-care (01) ==
LOC: ER 13:52
DX: L02.415 Cutaneous abscess of right lower limb (principal)
CPT/HCPCS: 99281